=== PATIENT | female | born 1960 | race American Indian/Alaskan Native ===

== ENCOUNTER 2020-07-21 23:01 | Inpatient (IN) | payer OTHER ==
[2020-07-21] MEDS ORDERED: LORazepam 2 MG/ML VIAL IV PRN ×2 (23:06)
[2020-07-21] MEDS ORDERED: diazePAM 10 MG/2 ML SYRINGE IV ONE ×3 (23:06→23:49)
--- NOTE | 2020-07-21 23:07 | Emergency Department Report ---
ED General Adult HPI - General Chief complaint: Weakness Stated complaint: ALCOHOL WITHDRWALS PUI?: No Time Seen by Provider: 07/21/20 23:05 Source: patient, EMS (Verbal report received from emergency medical services. EM S documentation not available at time of chart dictation ), RN notes reviewed Mode of arrival: Stretcher Limitations: Physical Limitation - History of Present Illness Initial comments: The patient was evaluated in the emergency department for symptoms described in the history of present illness. He/she was evaluated in the context of the global COVID-19 pandemic, which necessitated consideration that the patient might be at risk for infection with the virus that causes COVID-19. Institutional protocols and algorithms that pertain to the evaluation of patients at risk for COVID-19 are in a state of rapid change based on information released by regulatory bodies including the CDC and federal and stat e organizations. These policies and algorithms were followed during the patient's care in the emergency department. Please note that these policies, procedures and recommendations changed on a rapid basis. The patient is a 59-year-old female. She is not known to myself previously. She has a history of alcohol dependence, hypertension, and COPD. She presents to the ER today with EMS with a complaint of alcohol withdrawal. She typically drinks a liter of alcohol daily. Her last alcoholic beverage was over 24 hours ago. She presents with a complaint of malaise, shakiness, tremors, fatigue. She is not having physical pain. She endorses a dry cough. She is not homicidal suicidal. -: Gradual, hour(s) Consistency: constant Improves with: none Worsens with: none - Related Data Allergies Allergy/AdvReac Type Severity Reaction Status Date / Time Penicillins Allergy Unknown Verified 07/21/20 23:06 tomato sauce Allergy Unknown Uncoded 07/21/20 23:13 ED Review of Systems ROS: Stated complaint: ALCOHOL WITHDRWALS Other details as noted in HPI Constitutional: malaise, weakness, other (Denies loss of taste and smell) Eyes: denies: eye discharge Respiratory: denies: cough Cardiovascular: palpitations. denies: chest pain Gastrointestinal: denies: abdominal pain, nausea, vomiting Genitourinary: denies: dysuria Neurological: weakness Psychiatric: denies: auditory hallucinations, visual hallucinations, homicidal thoughts, suicidal thoughts ED Physical Exam - General Limitations: Physical Limitation General appearance: alert, anxious, in distress - Head Head exam: Present: atraumatic, normocephalic - Eye Eye exam: Present: normal appearance, EOMI. Absent: nystagmus - ENT ENT exam: Present: mucous membranes dry, normal external ear exam, other (Dry mucous membranes. Tongue fasciculations noted) - Neck Neck exam: Present: normal inspection, full ROM. Absent: tenderness, meningismus - Respiratory Respiratory exam: Present: normal lung sounds bilaterally. Absent: respiratory distress, wheezes, rales, rhonchi, stridor, decreased breath sounds - Cardiovascular Cardiovascular Exam: Present: normal rhythm, tachycardia, normal heart sounds. Absent: systolic murmur, diastolic murmur, rubs, gallop - GI/Abdominal GI/Abdominal exam: Present: soft. Absent: distended, tenderness, guarding, rebound, rigid, pulsatile mass - Extremities Exam Extremities exam: Present: normal inspection, full ROM, other (2+ pulses noted in the bilateral upper and lower extremities. There is no palpable cord. negative Homans sign. Muscular compartments are soft. The pelvis is stable.). Absent: pedal edema, calf tenderness - Back Exam Back exam: Present: normal inspection, full ROM. Absent: tenderness, CVA tenderness (R), CVA tenderness (L), paraspinal tenderness, vertebral tenderness - Neurological Exam Neurological exam: Present: alert, other (No facial droop. Tongue midline. Extraocular movements intact bilaterally. Facial sensation intact to light touch in V1, V2, V3 distribution bilaterally. 5 and a 5 strength in 4 extremities. Sensation intact to light touch in 4 extremities.) - Psychiatric Psychiatric exam: Present: anxious - Skin Skin exam: Present: warm, dry, intact, normal color. Absent: rash ED Course Vital Signs 07/21/20 07/22/20 23:24 00:00 Temperature 98.3 F Pulse Rate 134 H 115 H Respiratory 20 27 H Rate Blood Pressure 122/74 O2 Sat by Pulse 98 96 Oximetry ED Medical Decision Making - Lab Data Result diagrams: 07/21/20 23:15 07/21/20 23:15 Vital Signs 07/21/20 23:24 Temperature 98.3 F Pulse Rate 134 H Respiratory 20 Rate O2 Sat by Pulse 98 Oximetry Lab Results 07/21/20 07/21/20 07/21/20 Range/Units 23:15 23:15 23:15 WBC 6.7 (4.5-11.0) K/mm3 RBC 3.46 L (3.65-5.03) M/mm3 Hgb 11.2 (10.1-14.3) gm/dl Hct 33.4 (30.3-42.9) % MCV 97 (79-97) fl MCH 32 (28-32) pg MCHC 34 (30-34) % RDW 14.8 (13.2-15.2) % Plt Count 69 L (140-440) K/mm3 Sodium 140 (137-145) mmol/L Potassium 2.9 L* (3.6-5.0) mmol/L Chloride 96.8 L (98-107) mmol/L Carbon Dioxide 25 (22-30) mmol/L Anion Gap 21 mmol/L BUN 11 (7-17) mg/dL Creatinine 0.5 L (0.6-1.2) mg/dL Estimated GFR > 60 ml/min BUN/Creatinine Ratio 22 % Glucose 402 H (65-100) mg/dL POC Glucose (70-105) mg/dL Calcium 8.0 L (8.4-10.2) mg/dL Magnesium 1.50 L (1.7-2.3) mg/dL Total Bilirubin 1.10 (0.1-1.2) mg/dL AST 194 H (5-40) units/L ALT 32 (7-56) units/L Alkaline Phosphatase 199 H (35-129) units/L Total Protein 6.4 (6.3-8.2) g/dL Albumin 3.5 L (3.9-5) g/dL Albumin/Globulin Ratio 1.2 % Salicylates < 0.3 L (2.8-20.0) mg/dL Acetaminophen (10.0-30.0) ug/mL Plasma/Serum Alcohol (0-0.07) % 07/21/20 07/21/20 07/21/20 Range/Units 23:15 23:15 23:36 WBC (4.5-11.0) K/mm3 RBC (3.65-5.03) M/mm3 Hgb (10.1-14.3) gm/dl Hct (30.3-42.9) % MCV (79-97) fl MCH (28-32) pg MCHC (30-34) % RDW (13.2-15.2) % Plt Count (140-440) K/mm3 Sodium (137-145) mmol/L Potassium (3.6-5.0) mmol/L Chloride (98-107) mmol/L Carbon Dioxide (22-30) mmol/L Anion Gap mmol/L BUN (7-17) mg/dL Creatinine (0.6-1.2) mg/dL Estimated GFR ml/min BUN/Creatinine Ratio % Glucose (65-100) mg/dL POC Glucose 335 H (70-105) mg/dL Calcium (8.4-10.2) mg/dL Magnesium (1.7-2.3) mg/dL Total Bilirubin (0.1-1.2) mg/dL AST (5-40) units/L ALT (7-56) units/L Alkaline Phosphatase (35-129) units/L Total Protein (6.3-8.2) g/dL Albumin (3.9-5) g/dL Albumin/Globulin Ratio % Salicylates (2.8-20.0) mg/dL Acetaminophen 5.0 L (10.0-30.0) ug/mL Plasma/Serum Alcohol < 0.01 (0-0.07) % - EKG Data -: EKG Interpreted by [facility] EKG shows normal: sinus rhythm Rate: tachycardia - EKG Data 07/22/20 00:18 Sinus rhythm, tachycardia, 117 bpm. Normal axis, QTC 527 ms, left ventricular hypertrophy, incomplete right bundle branch block, atrial enlargement. Abnormal EKG. Not a STEMI. No prior for comparison. - Radiology Data Radiology results: pending, report reviewed, image reviewed X-ray of the chest is negative for acute disease - Medical Decision Making Differential diagnosis, including but not limited to: Alcohol withdrawal, metabolic acidosis, electrolyte derangement Assessment and plan: 59-year-old female with tongue fasciculations, tachycardia, generalized tremors, highly suspicious for alcohol withdrawal, initial CIWA score is 20. Patient received Valium 5 mg x 2. She does not meet criteria for 1013. Anemia and thrombocytopenia are likely secondary to alcoholism. She is found to have multiple electrolyte abnormalities, including hypokalemia, hypomagnesemia, and hypocalcemia. We will replete and address all of these. We will continue patient on CIWA protocol. With hyperglycemia, and hypokalemia, not a candidate for insulin therapy yet, as potassium is quite low. She will require admission to the medical service for medical optimization for her multiple abnormalities. I discussed this plan of care with the patient, who is amenable to this plan of care. Hospital physician, Dr. Charly Arnett, To admit patient to the medical service. Critical Care Time: Yes Critical care time in (mins) excluding proc time.: 35 Critical care attestation.: If time is entered above; I have spent that time in minutes in the direct care of this critically ill patient, excluding procedure time. ED Disposition Clinical Impression: Alcohol withdrawal, Hyperglycemia, Hypomagnesemia, Hypokalemia, Hypocalcemia, Metabolic acidosis, Thrombocytopenia Disposition: DC-09 OP ADMIT IP TO THIS HOSP Is pt being admited?: Yes Does the pt Need Aspirin: No Condition: Serious Referrals: PRIMARY CARE, [Primary Care Provider] - 3-5 Days
[2020-07-21] MEDS ORDERED: D5W/0.45% NACL 1,000 ML IV SCH (23:45)
[2020-07-22 00:05] LABS: Alanine Aminotransferase 32 units/L (7-56); Albumin 3.5 g/dL (3.9-5); Blood Urea Nitrogen 11 mg/dL (7-17); Hemolysis Index 2
--- NOTE | 2020-07-22 00:05 | XRay Report ---
CHEST 1 VIEW 07/21/2020 11:33 PM INDICATION / CLINICAL INFORMATION: cough. EtOH withdrawal. COMPARISON: None available. FINDINGS: SUPPORT DEVICES: None. HEART / MEDIASTINUM: No significant abnormality. LUNGS / PLEURA: No significant pulmonary or pleural abnormality. No pneumothorax. ADDITIONAL FINDINGS: No significant additional findings. IMPRESSION: 1. No acute findings. Signer Name: Roly Canchola MD Signed: 07/22/2020 12:01 AM Workstation Name: [id number]
[2020-07-22 00:07] LABS: BUN/Creatinine Ratio 22
[2020-07-22 00:08] LABS: Hematocrit 33.4 % (30.3-42.9); Hemoglobin 11.2 gm/dl (10.1-14.3); Mean Corpuscular HGB Conc 34 % (30-34); Mean Corpuscular Volume 97 fl (79-97); Red Blood Count 3.46 M/mm3 (3.65-5.03); Red Cell Distribution Width 14.8 % (13.2-15.2)
[2020-07-22 00:09] LABS: Platelet Count 69 K/mm3 (140-440)
[2020-07-22] MEDS ORDERED: MAGNESIUM SULFATE 2 GM/50 ML BAG IV ONE (00:11)
[2020-07-22] MEDS ORDERED: CALCIUM GLUCONATE 2,000 MG in SODIUM CHLORIDE 0.9% 100 ML IV ONE (00:11)
[2020-07-22] MEDS ORDERED: POTASSIUM CHLORIDE ER 20 MEQ TAB PO ONE (00:11)
[2020-07-22 00:16] LABS: INR 0.99 (0.87-1.13)
[2020-07-22] MEDS ORDERED: FOLIC ACID IV ONE (00:16)
[2020-07-22] MEDS ORDERED: MULTIPLE VITAMIN IV ONE (00:16)
[2020-07-22] MEDS ORDERED: THIAMINE IV ONE (00:16)
[2020-07-22] MEDS ORDERED: [UNRECOGNIZED DRUG - OTHER] IV ONE (00:16)
[2020-07-22] MEDS ORDERED: ONDANSETRON 4 MG/2 ML INJ IV PRN (00:56)
[2020-07-22] MEDS ORDERED: MAGNESIUM HYDROXIDE (MOM) ORAL LIQD UDC PO PRN (00:56)
[2020-07-22] MEDS ORDERED: ACETAMINOPHEN 325 MG TAB PO PRN (00:56)
[2020-07-22] MEDS ORDERED: SODIUM CHLORIDE 0.9% 1000 ML 1,000 ML IV SCH (01:00)
--- NOTE | 2020-07-22 01:07 | History and Physical Report ---
History of Present Illness Date of examination: 07/22/20 Date of admission: 07/22/20 00:22 Chief complaint: Alcohol withdrawal History of present illness: 59-year-old female with known history of hypertension, COPD and alcohol dependence brought into the emergency room today by EMS with complaints of alcohol withdrawal. Patient drinks about a liter of alcohol on a daily basis and the last alcohol intake was about 24 hours ago. She has been having some nausea and vomiting but denies any diarrhea. She denies any abdominal pain, no fever or chills, no chest pain or shortness of breath, no headache or dizziness. She has had some cough which is nonproductive. She denies any hallucinations. Upon arrival in the emergency room work-up reveals hypomagnesemia, hyperglycemia, hypokalemia and hypocalcemia. Patient was commenced on IV fluid and also placed on the CIWA protocol for the alcohol withdrawal. Electrolyte replacement was also being initiated. Past History Past Medical History: COPD, hypertension, other Past Surgical History: No surgical history Social history: alcohol abuse Family history: no significant family history Medications and Allergies Allergies Allergy/AdvReac Type Severity Reaction Status Date / Time Penicillins Allergy Unknown Verified 07/21/20 23:06 tomato sauce Allergy Unknown Uncoded 07/21/20 23:13 Active Meds: Active Medications Dextrose/Sodium Chloride (D5/0.45ns) 1,000 mls @ 0 mls/hr IV DIRECT ISIDORO Last Admin: 07/21/20 23:39 Dose: 999 mls/hr Documented by: Potassium Chloride (Kcl 10meq/100ml) 10 meq in 100 mls @ 100 mls/hr IV Q1H ISIDORO Stop: 07/22/20 04:59 Thiamine HCl 100 mg/ Folic Acid 1 mg/ Multivitamins/Minerals 10 ml/ Calcium Gluconate 2,000 mg/ Sodium Chloride 1,031.2 mls @ 250 mls/hr IV ONCE ONE Stop: 07/22/20 04:23 Lorazepam (Lorazepam 2 Mg/Ml Vial) 2 mg IV Q1HR PRN PRN Reason: CIWA-Ar 8-15 Lorazepam (Lorazepam 2 Mg/Ml Vial) 4 mg IV Q1HR PRN PRN Reason: CIWA-Ar 16-25 Lorazepam (Lorazepam 2 Mg/Ml Vial) 4 mg IV Q15MIN PRN PRN Reason: CIWA-Ar >25 Magnesium Oxide (Magnesium Oxide 400 Mg Tab) 400 mg PO QDAY ISIDORO Review of Systems Constitutional: no fever, no chills, no weakness Ears, nose, mouth and throat: no nasal congestion, no sore throat Cardiovascular: no chest pain, no palpitations Respiratory: no cough, no shortness of breath Gastrointestinal: nausea, vomiting, no abdominal pain, no diarrhea, no hematemesis, no coffee ground emesis Genitourinary Female: no flank pain, no dysuria, no hematuria Musculoskeletal: no neck pain, no low back pain Integumentary: no rash, no pruritis Neurological: no headaches, no confusion Psychiatric: anxiety, depression Exam - Constitutional Vitals: Temp Pulse Resp BP Pulse Ox 98.3 F 115 H 27 H 122/74 96 07/21/20 23:24 07/22/20 00:00 07/22/20 00:00 07/22/20 00:00 07/22/20 00:00 General appearance: Present: no acute distress, well-nourished - EENT Eyes: Present: PERRL, EOM intact. Absent: scleral icterus ENT: hearing intact, clear oral mucosa, dentition normal - Neck Neck: Present: supple, normal ROM - Respiratory Respiratory effort: normal Respiratory: bilateral: CTA - Cardiovascular Rhythm: regular Heart Sounds: Present: S1 & S2. Absent: gallop, systolic murmur, diastolic murmur, rub - Extremities Extremities: no ischemia, pulses intact, pulses symmetrical, No edema, normal temperature, normal color, Full ROM Peripheral Pulses: within normal limits - Abdominal General gastrointestinal: Present: soft, non-tender, non-distended, normal bowel sounds. Absent: mass - Integumentary Integumentary: Present: clear, warm, dry. Absent: rash - Musculoskeletal Musculoskeletal: strength equal bilaterally - Psychiatric Psychiatric: appropriate mood/affect, intact judgment & insight, memory intact, cooperative - Neurologic Neurologic: CNII-XII intact, no focal deficits, moves all extremities, other (Appears anxious, tremulous in the fingers.) Results - Labs CBC & Chem 7: 07/21/20 23:15 07/21/20 23:15 Labs: Abnormal lab results 07/21/20 07/21/20 07/21/20 Range/Units 23:15 23:15 23:15 RBC 3.46 L (3.65-5.03) M/mm3 Plt Count 69 L (140-440) K/mm3 VBG pH (7.320-7.420) Potassium 2.9 L* (3.6-5.0) mmol/L Chloride 96.8 L (98-107) mmol/L Creatinine 0.5 L (0.6-1.2) mg/dL Glucose 402 H (65-100) mg/dL POC Glucose (70-105) mg/dL Lactic Acid (0.7-2.0) mmol/L Calcium 8.0 L (8.4-10.2) mg/dL Magnesium 1.50 L (1.7-2.3) mg/dL AST 194 H (5-40) units/L Alkaline Phosphatase 199 H (35-129) units/L Albumin 3.5 L (3.9-5) g/dL Salicylates < 0.3 L (2.8-20.0) mg/dL Acetaminophen (10.0-30.0) ug/mL 07/21/20 07/21/20 07/22/20 Range/Units 23:15 23:36 00:29 RBC (3.65-5.03) M/mm3 Plt Count (140-440) K/mm3 VBG pH 7.441 H (7.320-7.420) Potassium (3.6-5.0) mmol/L Chloride (98-107) mmol/L Creatinine (0.6-1.2) mg/dL Glucose (65-100) mg/dL POC Glucose 335 H (70-105) mg/dL Lactic Acid (0.7-2.0) mmol/L Calcium (8.4-10.2) mg/dL Magnesium (1.7-2.3) mg/dL AST (5-40) units/L Alkaline Phosphatase (35-129) units/L Albumin (3.9-5) g/dL Salicylates (2.8-20.0) mg/dL Acetaminophen 5.0 L (10.0-30.0) ug/mL 07/22/20 Range/Units 00:29 RBC (3.65-5.03) M/mm3 Plt Count (140-440) K/mm3 VBG pH (7.320-7.420) Potassium (3.6-5.0) mmol/L Chloride (98-107) mmol/L Creatinine (0.6-1.2) mg/dL Glucose (65-100) mg/dL POC Glucose (70-105) mg/dL Lactic Acid 4.30 H* (0.7-2.0) mmol/L Calcium (8.4-10.2) mg/dL Magnesium (1.7-2.3) mg/dL AST (5-40) units/L Alkaline Phosphatase (35-129) units/L Albumin (3.9-5) g/dL Salicylates (2.8-20.0) mg/dL Acetaminophen (10.0-30.0) ug/mL Assessment and Plan - Patient Problems (1) Alcohol withdrawal Current Visit: Yes Status: Acute Plan to address problem: Patient admitted and placed on alcohol withdrawal protocol. She has also been commenced on multivitamins via banana bag. (2) Hyperglycemia Current Visit: Yes Status: Acute Plan to address problem: We will monitor Accu-Cheks closely. Patient has no known history of diabetes mellitus. (3) Hypocalcemia Current Visit: Yes Status: Acute Plan to address problem: We will replete calcium and monitor chemistry. (4) Hypokalemia Current Visit: Yes Status: Acute Plan to address problem: We will replete potassium and monitor chemistry. (5) Hypomagnesemia Current Visit: Yes Status: Acute Plan to address problem: We will replete magnesium and monitor chemistry (6) DVT prophylaxis Current Visit: Yes Status: Acute Plan to address problem: Patient placed on subcutaneous on Lovenox. (7) Full code status Current Visit: Yes Status: Acute Plan to address problem: Patient is full code.
[2020-07-22] MEDS ORDERED: DEXTROSE 50% IN WATER (25GM) 50 ML SYRINGE IV PRN (01:10)
[2020-07-22] MEDS: POTASSIUM CHLORIDE 10 MEQ 10 MEQ/100 ML BAG IV SCH ×4 (01:19→04:30)
[2020-07-22] MEDS: LORazepam 2 MG/ML VIAL IV PRN ×3 (03:28→15:19)
[2020-07-22] MEDS: INSULIN LISPRO 100 UNIT/ML SUB-Q SCH ×4 (08:27→21:38)
--- NOTE | 2020-07-22 10:07 | Event Note ---
Date: 07/22/20 Patient seen and examined Monitor for alcohol withdrawal, continue CIWA protocol will also r/o COVID Replete electrolytes, follow BMP
[2020-07-22] MEDS: MAGNESIUM OXIDE 400 MG TAB PO SCH (10:13)
[2020-07-22 14:38] LABS: Blood Urea Nitrogen 4 mg/dL (7-17); Calcium 8.4 mg/dL (8.4-10.2); Hemolysis Index 0
[2020-07-22 14:41] LABS: BUN/Creatinine Ratio 13
[2020-07-22] MEDS: AZITHROMYCIN 250 MG TAB PO SCH (19:06)
[2020-07-22] MEDS: POTASSIUM CHLORIDE ER 20 MEQ TAB PO SCH (19:06)
[2020-07-23] MEDS: LORazepam 2 MG/ML VIAL IV PRN (03:05)
[2020-07-23] MEDS: SODIUM CHLORIDE 0.9% 1000 ML 1,000 ML IV SCH ×2 (05:43→12:59)
[2020-07-23 06:44] LABS: Blood Urea Nitrogen 3 mg/dL (7-17); Calcium 8.4 mg/dL (8.4-10.2); Hemolysis Index 2
[2020-07-23 06:46] LABS: Basophils % (Auto) 0.7 % (0.0-1.8); Eosinophils # (Auto) 0.1 K/mm3 (0.0-0.4); Hematocrit 35.1 % (30.3-42.9); Hemoglobin 11.8 gm/dl (10.1-14.3); Lymphocytes # (Auto) 1.4 K/mm3 (1.2-5.4); Lymphocytes % (Auto) 23.3 % (13.4-35.0); Mean Corpuscular HGB Conc 34 % (30-34); Mean Corpuscular Volume 96 fl (79-97); Monocytes # (Auto) 0.3 K/mm3 (0.0-0.8); Monocytes % (Auto) 5.2 % (0.0-7.3); Platelet Count 68 K/mm3 (140-440); Red Blood Count 3.67 M/mm3 (3.65-5.03); Red Cell Distribution Width 14.2 % (13.2-15.2)
[2020-07-23 06:47] LABS: BUN/Creatinine Ratio 15
[2020-07-23 07:00] LABS: INR 1.04 (0.87-1.13)
[2020-07-23] MEDS: INSULIN LISPRO 100 UNIT/ML SUB-Q SCH ×4 (08:45→22:43)
[2020-07-23] MEDS: MAGNESIUM OXIDE 400 MG TAB PO SCH (09:57)
[2020-07-23] MEDS: AZITHROMYCIN 250 MG TAB PO SCH (09:57)
[2020-07-23] MEDS: POTASSIUM CHLORIDE ER 20 MEQ TAB PO SCH (09:58)
[2020-07-23] MEDS ORDERED: POTASSIUM CHLORIDE ER 20 MEQ TAB PO NR (12:00)
--- NOTE | 2020-07-23 12:50 | Progress Note ---
Assessment and Plan 59-year-old female with known history of hypertension, COPD and alcohol dependence brought into the emergency room by EMS with complaints of alcohol withdrawal, some nausea and vomiting. Upon arrival in the emergency room work- up reveals hypomagnesemia, hyperglycemia, hypokalemia and hypocalcemia. Patient was commenced on IV fluid and also placed on the CIWA protocol for the alcohol withdrawal. -- Acute pancreatitis, POA Patient has elevated lipase level, also presented with nausea vomiting Continue IV fluid hydration, advance diet as tolerated Recommended abstinence from the alcohol -- Alcohol withdrawal Patient admitted and placed on alcohol withdrawal protocol. She has also been commenced on multivitamins via banana bag. -- Hyperglycemia We will monitor Accu-Cheks closely. Patient has no known history of diabetes mellitus. --Hypocalcemia We will replete calcium and monitor chemistry. -- Hypokalemia We will replete potassium and monitor chemistry. --Hypomagnesemia We will replete magnesium and monitor chemistry --Malnutrition, moderate Nutrition consult --COPD, stable Nebulizer as needed -- DVT prophylaxis Patient placed on subcutaneous on Lovenox. -- Full code status Daily course: 07/23/20: wait for covid test, replete electrolytes, follow BMP. order PT eval. call patient daughter and updated with all clinical details. Subjective Date of service: 07/23/20 Interval history: Patient seen and examined. Medical records and medication list reviewed. No acute event overnight noted by the RN. Patient denies any chest pain or difficulty breathing. Patient is tolerating clear liquid diet -we will advance as tolerated. Denies any abdominal pain, Covid test pending Discussed plan of care at bedside with patient. Objective - Exam Narrative Exam: Limited physical exam due to COVID-19 pandemic to minimize transmission of the disease and to preserve PPE. Vital reviewed and stable. GENERAL: -[place] female who appears older than her stated age lying on bed appeared to be in no discomfort. HEENT: Normocephalic. Atraumatic. NECK: Supple. CHEST/LUNGS: breathing nonlabored. HEART/CARDIOVASCULAR: Heart rate stable on telemetry ABDOMEN: Visibly not distended SKIN: There is no rash NEURO: No focal motor deficit. Follows command. MUSCULOSKELETAL: No joint effusion EXTRIMITY: No swelling, no cyanosis or clubbing. PSYCH: Cooperative. - Constitutional Vitals: Vital Signs - 12hr 07/23/20 07/23/20 07/23/20 02:00 05:01 10:31 Temperature 98.2 F Pulse Rate 117 H 107 H Respiratory 20 Rate Blood Pressure 120/77 O2 Sat by Pulse 98 98 Oximetry 07/23/20 11:02 Temperature 99.1 F Pulse Rate 107 H Respiratory 18 Rate Blood Pressure 101/67 O2 Sat by Pulse 100 Oximetry - Labs CBC & Chem 7: 07/23/20 04:50 07/24/20 05:36 Labs: Abnormal lab results 07/22/20 07/22/20 07/23/20 Range/Units 13:51 20:26 04:50 Plt Count 68 L (140-440) K/mm3 Potassium 3.2 L (3.6-5.0) mmol/L Carbon Dioxide 32 H D (22-30) mmol/L BUN 4 L (7-17) mg/dL Creatinine 0.3 L (0.6-1.2) mg/dL Glucose 118 H (65-100) mg/dL POC Glucose 114 H (70-105) mg/dL Magnesium 1.60 L (1.7-2.3) mg/dL 07/23/20 07/23/20 Range/Units 04:50 07:49 Plt Count (140-440) K/mm3 Potassium 3.2 L (3.6-5.0) mmol/L Carbon Dioxide (22-30) mmol/L BUN 3 L (7-17) mg/dL Creatinine 0.2 L (0.6-1.2) mg/dL Glucose (65-100) mg/dL POC Glucose 66 L (70-105) mg/dL Magnesium (1.7-2.3) mg/dL
[2020-07-23] MEDS ORDERED: MAGNESIUM SULFATE 2 GM/50 ML BAG IV ONE (13:00)
[2020-07-23] MEDS: metroNIDAZOLE 500 MG TAB PO SCH ×2 (16:36→22:44)
[2020-07-23] MEDS: D5W/0.9% NACL 1,000 ML IV SCH (16:43)
[2020-07-24] MEDS: D5W/0.9% NACL 1,000 ML IV SCH (05:48)
[2020-07-24] MEDS: metroNIDAZOLE 500 MG TAB PO SCH ×2 (05:48→14:11)
[2020-07-24 06:56] LABS: Blood Urea Nitrogen 4 mg/dL (7-17); Calcium 8.5 mg/dL (8.4-10.2); Hemolysis Index 0
[2020-07-24 06:58] LABS: BUN/Creatinine Ratio 13
[2020-07-24 08:28] VITALS: BP 97/66
[2020-07-24] MEDS: INSULIN LISPRO 100 UNIT/ML SUB-Q SCH ×2 (08:33→12:52)
[2020-07-24] MEDS: MAGNESIUM OXIDE 400 MG TAB PO SCH (09:04)
[2020-07-24] MEDS: AZITHROMYCIN 250 MG TAB PO SCH (09:04)
[2020-07-24] MEDS: POTASSIUM CHLORIDE ER 20 MEQ TAB PO SCH (09:04)
[2020-07-24] MEDS: LORazepam 2 MG/ML VIAL IV PRN (09:08)
--- NOTE | 2020-07-24 15:31 | Progress Note ---
Assessment and Plan 59-year-old female with known history of hypertension, COPD and alcohol dependence brought into the emergency room by EMS with complaints of alcohol withdrawal, some nausea and vomiting. Upon arrival in the emergency room work- up reveals hypomagnesemia, hyperglycemia, hypokalemia and hypocalcemia. Patient was commenced on IV fluid and also placed on the CIWA protocol for the alcohol withdrawal. -- Acute pancreatitis, POA Patient has elevated lipase level, also presented with nausea vomiting Continue IV fluid hydration, advance diet as tolerated Recommended abstinence from the alcohol -- Alcohol withdrawal Patient admitted and placed on alcohol withdrawal protocol. She has also been commenced on multivitamins via banana bag. -- Hyperglycemia We will monitor Accu-Cheks closely. Patient has no known history of diabetes mellitus. --Hypocalcemia We will replete calcium and monitor chemistry. -- Hypokalemia repleted potassium and monitor chemistry. --Hypomagnesemia repleted magnesium and monitor chemistry --Acute diarrhea, ordered for stool study, continue Flagyl for now --Malnutrition, moderate Nutrition consult --COPD, stable Nebulizer as needed -- DVT prophylaxis Patient placed on subcutaneous on Lovenox. -- Full code status Daily course: 07/23/20: wait for covid test, replete electrolytes, follow BMP. order PT eval. call patient daughter and updated with all clinical details. RN reports some diarrhea -ordered for stool study, start empirically on Flagyl 07/24/20: Covid test was negative yesterday. Stool study pending. Potassium and magnesium level improved. Advance diet. Wait for PT eval. if clinically stable and tolerates diet possible DC tomorrow. Order for repeat lipase level tomorrow Subjective Date of service: 07/24/20 Objective - Constitutional Vitals: Vital Signs - 12hr 07/24/20 08:07 Temperature 98.9 F Pulse Rate 86 Respiratory 16 Rate Blood Pressure 97/66 O2 Sat by Pulse 100 Oximetry - Labs CBC & Chem 7: 07/23/20 04:50 07/24/20 05:36 Labs: Abnormal lab results 07/23/20 07/23/20 07/24/20 Range/Units 11:01 16:11 05:36 Sodium 136 L (137-145) mmol/L BUN 4 L (7-17) mg/dL Creatinine 0.3 L (0.6-1.2) mg/dL POC Glucose 144 H (70-105) mg/dL Lipase 776 H (13-60) units/L
--- NOTE | 2020-07-24 17:06 | Discharge Summary ---
Providers - Providers Date of Admission: 07/22/20 10:09 Date of discharge: 07/24/20 Attending physician: EDI OWENS 07/22/20 00:58 Consult to Dietitian/Nutrition [CONS] Routine Physician Instructions: Reason For Exam: Reason for Consult: Diet education 07/22/20 01:10 Consult to Dietitian/Nutrition [CONS] Routine Physician Instructions: Reason For Exam: Reason for Consult: Diet education 07/23/20 15:59 Physical Therapy Evaluation and Treat [CONS] Routine Comment: Reason For Exam: Debility 07/24/20 13:21 Physical Therapy Evaluation and Treat [CONS] Urgent Comment: Reason For Exam: home vs skill Primary care physician: VENDING 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 Upon arrival in the emergency room work- up reveals hypomagnesemia, hyperglycemia, hypokalemia and hypocalcemia. Patient was commenced on IV fluid and also placed on the CIWA protocol for the alcohol withdrawal. Daily course: 07/23/20: wait for covid test, replete electrolytes, follow BMP. order PT eval. call patient daughter and updated with all clinical details. RN reports some diarrhea -ordered for stool study, start empirically on Flagyl 07/24/20: Covid test was negative yesterday. Potassium and magnesium level improved. Advance diet. PT recommended roller walker. Patient will be discharged home with outpatient follow-up. Discharge diagnosis; -- Acute pancreatitis, POA Patient has elevated lipase level, also presented with nausea vomiting Continue IV fluid hydration, advance diet as tolerated Recommended abstinence from the alcohol -- Alcohol withdrawal Patient admitted and placed on alcohol withdrawal protocol. She has also been commenced on multivitamins via banana bag. -- Hyperglycemia We will monitor Accu-Cheks closely. Patient has no known history of diabetes mellitus. --Hypocalcemia We will replete calcium and monitor chemistry. -- Hypokalemia repleted potassium and monitor chemistry. --Hypomagnesemia repleted magnesium and monitor chemistry --Acute diarrhea, ordered for stool study, continue Flagyl for now --Malnutrition, moderate Nutrition consult --COPD, stable Nebulizer as needed -- DVT prophylaxis Patient placed on subcutaneous on Lovenox. -- Full code status Disposition: DC-01 TO HOME OR SELFCARE Time spent for discharge: 34 minutes Core Measure Documentation - Palliative Care Palliative Care/ Comfort Measures: Not Applicable - Core Measures Any of the following diagnoses?: none Exam - Physical Exam Narrative exam: Limited physical exam due to COVID-19 pandemic to minimize transmission of the disease and to preserve PPE. Vital reviewed and stable. GENERAL: -[place] female who appears older than her stated age lying on bed appeared to be in no discomfort. HEENT: Normocephalic. Atraumatic. NECK: Supple. CHEST/LUNGS: breathing nonlabored. HEART/CARDIOVASCULAR: Heart rate stable on telemetry ABDOMEN: Visibly not distended SKIN: There is no rash NEURO: No focal motor deficit. Follows command. MUSCULOSKELETAL: No joint effusion EXTRIMITY: No swelling, no cyanosis or clubbing. PSYCH: Cooperative. - Constitutional Vitals: Temp Pulse Resp BP Pulse Ox 98.9 F 86 16 97/66 100 07/24/20 08:07 07/24/20 10:00 07/24/20 08:07 07/24/20 08:07 07/24/20 08:07 Plan Activity: fall precautions Weight Bearing Status: Non-Weight Bearing Diet: advance as tolerated Special Instructions: other (Abstinence from alcohol) Follow up with: PRIMARY CARE, [Primary Care Provider] - 3-5 Days BELLA STEVENSON MD [Staff Physician] - 7 Days Prescriptions: metroNIDAZOLE [Flagyl TAB] 500 mg PO Q8HR #14 tablet Folic Acid 1 mg PO DAILY #30 tablet Thiamine [Vitamin B-1] 100 mg PO QDAY #30 tablet
== END 2020-07-24 18:08 | disposition home or self-care (01) | DRG 439 ==
LOC: ED 23:01 → 4A 07-22 00:22 → OBSVTOIN 07-22 10:09 → 3A 07-22 20:05 → 4A 07-23 21:10
PROVIDERS: ADMIT Internal Medicine Geriatric Medicine; ATTEND Internal Medicine
DX: K85.90 Acute pancreatitis without necrosis or infection, unspecified (principal); F10.239 Alcohol dependence with withdrawal, unspecified; E87.2 Acidosis; E44.0 Moderate protein-calorie malnutrition; R73.9 Hyperglycemia, unspecified; D69.6 Thrombocytopenia, unspecified; E87.6 Hypokalemia; E83.42 Hypomagnesemia; E83.51 Hypocalcemia; Z88.0 Allergy status to penicillin; Z91.018 Allergy to other foods; Z20.822 Contact with and (suspected) exposure to COVID-19; I10 Essential (primary) hypertension; J44.9 Chronic obstructive pulmonary disease, unspecified; Z68.23 Body mass index [BMI] 23.0-23.9, adult
CPT/HCPCS: 36415; 71045; 80048; 80053; 80320; 82140; 82805; 82962; 83690; 83735; 85025; 85027; 85610; 93005; 96361; 96365; 96367; 96375; 96376; 99406; G0378; G0480; J0610; J1815; J2060; J3360; J3411; J3475; J3480; J7030; J7042; U0003

== ENCOUNTER 2021-07-08 08:30 | Inpatient (IN) | payer SELFPAY ==
[2021-07-08] MEDS ORDERED: MORPHINE 4 MG/1 ML INJ IV ONE (09:20)
[2021-07-08] MEDS ORDERED: SODIUM CHLORIDE 0.9% 1000 ML 1,000 ML IV ONE ×2 (09:20→12:12)
[2021-07-08] MEDS ORDERED: ONDANSETRON 4 MG/2 ML INJ IV ONE (09:20)
--- NOTE | 2021-07-08 09:22 | Emergency Department Report ---
ED General Adult HPI - General Chief complaint: Abdominal Pain Stated complaint: Abdominal Pain PUI?: No Time Seen by Provider: 07/08/21 08:53 Source: patient, EMS ( EMS documentation not available at time of chart dictat ion ), RN notes reviewed, old records reviewed Mode of arrival: Stretcher Limitations: Physical Limitation - History of Present Illness Initial comments: The patient was evaluated in the emergency department for symptoms described in the history of present illness. He/she was evaluated in the context of the global COVID-19 pandemic, which necessitated consideration that the patient might be at risk for infection with the virus that causes COVID-19. Institutional protocols and algorithms that pertain to the evaluation of patients at risk for COVID-19 are in a state of rapid change based on information released by regulatory bodies including the CDC and federal and state organizations. These policies and algorithms were followed during the patient's care in the emergency department. Please note that these policies, procedures and recommendations changed on a rapid basis. The patient is a 60-year-old female. I have evaluated this patient in the past. The patient reports having had an outpatient colonoscopy yesterday at another facility, [facility]. She does not know the name of her it support analyst. She does not know the results of her colonoscopy She presents to the ER today with a complaint of diffuse abdominal pain, nausea and vomiting. Her abdominal pain is sharp and throbbing and diffuse. It increases with palpation. It is all over. It does not have alleviating factors. Denies additional injuries or complaints. -: Gradual, hour(s) Location: abdomen Severity scale (0 -10): 10 Consistency: constant Improves with: other Worsens with: other - Related Data Previous Rx's Medication Instructions Recorded Last Taken Type Folic Acid 1 mg PO DAILY #30 tablet 07/24/20 Unknown Rx Thiamine [Vitamin B-1] 100 mg PO QDAY #30 tablet 07/24/20 Unknown Rx metroNIDAZOLE [Flagyl TAB] 500 mg PO Q8HR #14 tablet 07/24/20 Unknown Rx Allergies Allergy/AdvReac Type Severity Reaction Status Date / Time Penicillins Allergy Unknown Verified 07/21/20 23:06 tomato sauce Allergy Unknown Uncoded 07/21/20 23:13 ED Review of Systems ROS: Stated complaint: Abdominal Pain Other details as noted in HPI Constitutional: malaise, weakness. denies: fever Eyes: denies: eye discharge ENT: denies: epistaxis Respiratory: denies: cough Cardiovascular: denies: chest pain Gastrointestinal: abdominal pain, nausea, vomiting Genitourinary: denies: dysuria Musculoskeletal: back pain Neurological: weakness Hematological/Lymphatic: denies: easy bleeding ED Past Medical Hx - Past Medical History Previous Medical History?: Yes Hx Hypertension: Yes Hx Congestive Heart Failure: No Hx Diabetes: (pt denies) Hx Asthma: Yes Hx COPD: Yes Additional medical history: Alcohol withdrawals, pancreatitis - Surgical History Additional Surgical History: knee, stomach - Social History Smoking Status: Current Every Day Smoker - Medications Home Medications: Home Medications Medication Instructions Recorded Confirmed Last Taken Type Folic Acid 1 mg PO DAILY #30 tablet 07/24/20 Unknown Rx Thiamine [Vitamin B-1] 100 mg PO QDAY #30 tablet 07/24/20 Unknown Rx metroNIDAZOLE [Flagyl TAB] 500 mg PO Q8HR #14 tablet 07/24/20 Unknown Rx ED Physical Exam - General Limitations: Physical Limitation General appearance: alert, anxious - Head Head exam: Present: atraumatic, normocephalic - Eye Eye exam: Present: normal appearance, EOMI. Absent: nystagmus - ENT ENT exam: Present: normal exam, normal orophraynx, mucous membranes moist, normal external ear exam - Neck Neck exam: Present: normal inspection, full ROM. Absent: tenderness, meningismus - Respiratory Respiratory exam: Present: normal lung sounds bilaterally. Absent: respiratory distress, wheezes, rales, rhonchi, stridor, decreased breath sounds - Cardiovascular Cardiovascular Exam: Present: regular rate, normal rhythm, normal heart sounds. Absent: bradycardia, tachycardia, irregular rhythm, systolic murmur, diastolic murmur, rubs, gallop - GI/Abdominal GI/Abdominal exam: Present: soft, tenderness, guarding, rebound. Absent: distended, rigid, pulsatile mass - Extremities Exam Extremities exam: Present: normal inspection, full ROM, other (2+ pulses noted in the bilateral upper and lower extremities. There is no palpable cord. negative Homans sign. Muscular compartments are soft. The pelvis is stable.). Absent: pedal edema, calf tenderness - Back Exam Back exam: Present: normal inspection, full ROM. Absent: tenderness, CVA tenderness (R), CVA tenderness (L), paraspinal tenderness, vertebral tenderness - Neurological Exam Neurological exam: Present: alert, oriented X3, other (No facial droop. Tongue midline. Extraocular movements intact bilaterally. Facial sensation intact to light touch in V1, V2, V3 distribution bilaterally. 5 and a 5 strength in 4 extremities. Sensation intact to light touch in 4 extremities.). Absent: motor sensory deficit - Psychiatric Psychiatric exam: Present: anxious - Skin Skin exam: Present: warm, dry, intact, normal color. Absent: rash ED Course Vital Signs 07/08/21 08:35 Temperature 98.3 F Pulse Rate 78 Respiratory 18 Rate Blood Pressure 106/60 [Left] O2 Sat by Pulse 100 Oximetry ED Medical Decision Making - Lab Data Result diagrams: 07/08/21 09:29 07/08/21 09:29 Vital Signs 07/08/21 08:35 Temperature 98.3 F Pulse Rate 78 Respiratory 18 Rate Blood Pressure 106/60 [Left] O2 Sat by Pulse 100 Oximetry Lab Results 07/08/21 07/08/21 07/08/21 Range/Units 09:29 09:29 09:29 WBC 8.5 (4.5-11.0) K/mm3 RBC 4.78 (3.65-5.03) M/mm3 Hgb 13.1 (10.1-14.3) gm/dl Hct 41.1 (30.3-42.9) % MCV 86 (79-97) fl MCH 27 L (28-32) pg MCHC 32 (30-34) % RDW 16.9 H (13.2-15.2) % Plt Count 144 (140-440) K/mm3 Lymph % (Auto) 9.1 L (13.4-35.0) % [place] % (Auto) 3.1 (0.0-7.3) % Eos % (Auto) 0.1 (0.0-4.3) % Baso % (Auto) 1.2 (0.0-1.8) % Lymph # (Auto) 0.8 L (1.2-5.4) K/mm3 [place] # (Auto) 0.3 (0.0-0.8) K/mm3 Eos # (Auto) 0.0 (0.0-0.4) K/mm3 Baso # (Auto) 0.1 (0.0-0.1) K/mm3 Seg Neutrophils % 86.5 H (40.0-70.0) % Seg Neutrophils # 7.4 (1.8-7.7) K/mm3 PT 13.7 (12.2-14.9) Sec. INR 0.95 (0.87-1.13) Sodium 142 (137-145) mmol/L Potassium 3.2 L (3.6-5.0) mmol/L Chloride 104.5 (98-107) mmol/L Carbon Dioxide 23 (22-30) mmol/L Anion Gap 18 mmol/L BUN 6 L (7-17) mg/dL Creatinine 0.6 (0.6-1.2) mg/dL Estimated GFR > 60 ml/min BUN/Creatinine Ratio 10 % Glucose 113 H (65-100) mg/dL Lactic Acid (0.7-2.0) mmol/L Calcium 9.0 (8.4-10.2) mg/dL Magnesium (1.7-2.3) mg/dL Total Bilirubin 0.30 (0.1-1.2) mg/dL Direct Bilirubin < 0.2 (0-0.2) mg/dL Indirect Bilirubin 0.1 mg/dL AST 16 (5-40) units/L ALT 12 (7-56) units/L Alkaline Phosphatase 78 (35-129) units/L Total Creatine Kinase (30-135) units/L Total Protein 7.3 (6.3-8.2) g/dL Albumin 4.0 (3.9-5) g/dL Albumin/Globulin Ratio 1.2 % Lipase 21 (13-60) units/L 07/08/21 07/08/21 Range/Units 09:29 09:29 WBC (4.5-11.0) K/mm3 RBC (3.65-5.03) M/mm3 Hgb (10.1-14.3) gm/dl Hct (30.3-42.9) % MCV (79-97) fl MCH (28-32) pg MCHC (30-34) % RDW (13.2-15.2) % Plt Count (140-440) K/mm3 Lymph % (Auto) (13.4-35.0) % [place] % (Auto) (0.0-7.3) % Eos % (Auto) (0.0-4.3) % Baso % (Auto) (0.0-1.8) % Lymph # (Auto) (1.2-5.4) K/mm3 [place] # (Auto) (0.0-0.8) K/mm3 Eos # (Auto) (0.0-0.4) K/mm3 Baso # (Auto) (0.0-0.1) K/mm3 Seg Neutrophils % (40.0-70.0) % Seg Neutrophils # (1.8-7.7) K/mm3 PT (12.2-14.9) Sec. INR (0.87-1.13) Sodium (137-145) mmol/L Potassium (3.6-5.0) mmol/L Chloride (98-107) mmol/L Carbon Dioxide (22-30) mmol/L Anion Gap mmol/L BUN (7-17) mg/dL Creatinine (0.6-1.2) mg/dL Estimated GFR ml/min BUN/Creatinine Ratio % Glucose (65-100) mg/dL Lactic Acid 1.90 (0.7-2.0) mmol/L Calcium (8.4-10.2) mg/dL Magnesium 1.50 L (1.7-2.3) mg/dL Total Bilirubin (0.1-1.2) mg/dL Direct Bilirubin (0-0.2) mg/dL Indirect Bilirubin mg/dL AST (5-40) units/L ALT (7-56) units/L Alkaline Phosphatase (35-129) units/L Total Creatine Kinase 71 (30-135) units/L Total Protein (6.3-8.2) g/dL Albumin (3.9-5) g/dL Albumin/Globulin Ratio % Lipase (13-60) units/L - EKG Data -: EKG Interpreted by [facility] EKG shows normal: sinus rhythm Rate: normal - EKG Data 07/08/21 12:18 The EKG is interpreted at 10: 25 Sinus rhythm, rate 89 bpm. Normal axis, normal P wave axis, left ventricular hypertrophy, atrial enlargement and motion artifact. Abnormal EKG. Not a STEMI. - Radiology Data Radiology results: report reviewed, image reviewed CT ABDOMEN AND PELVIS WITH CONTRAST HISTORY: acute abd pain s/p colonoscopy. COMPARISON: None. TECHNIQUE: Helical CT images of the abdomen and pelvis were obtained following administration of intravenous contrast. Sagittal and coronal reformatted images were reviewed. All CT scans at this location are performed using CT dose reduction for ALARA by means of automated exposure control. CONTRAST: Omnipaque 300 100 ml of intravenous contrast administered. FINDINGS: Abdomen/pelvis: There is mild to moderate free air in the abdomen. Visceral perforation is suspected until proven otherwise. With given history, colonic perforation is suspected although the site of perforation is not clearly evident. There is suggestion of narrowing in the rectosigmoid region in the pelvis. Mild circumferential bowel wall thickening with shouldering is identified in this area which is best demonstrated on image 66, series 4. Rectosigmoid mass/apple core lesion is difficult to exclude. The remainder of the GI system is grossly unremarkable given no oral contrast was administered. The liver, biliary system, pancreas, spleen, kidneys and adrenal glands are unremarkable. The vascular structures are patent. Mild atherosclerotic disease is noted in the abdominal aorta. No aneurysm. No adenopathy or fluid collection. There is small free fluid in the pelvis. The uterus, adnexa and bladder are unremarkable. Lungs/bones: No significant abnormality. IMPRESSION: Mild to moderate free air is identified in the abdomen concerning for visceral perforation. See above. Although this exam is slightly limited without oral contrast, there is suggestion of a mass in the rectosigmoid region. Please see above. CRITICAL RESULT: Time of Discovery (WINDOWS ADMINISTRATOR/CDT): 1105 hours Time of Communication (WINDOWS ADMINISTRATOR/CDT): 1107 hours Licensed Practitioner Receiving Report: Dr. Lema Read-Back Performed: Yes. Signer Name: Jeevan Rodriguez Jr, MD Signed: 07/08/2021 11:21 AM Workstation Name: [id number] - Medical Decision Making Differential diagnosis, including but not limited to: Colitis, diverticulitis, obstruction, perforation, electrolyte derangement Assessment and plan: 60-year-old female, with diffuse abdominal pain and tenderness, voluntary guarding, status post colonoscopy yesterday. CT scan abdomen pelvis demonstrates pneumoperitoneum, and possible rectosigmoid mass. She is also found to be hypokalemic and hypomagnesemic. Contacted general surgeon on-call, Dr. Lizama. Discussed the patient's history, physical, laboratory studies and imaging findings and overall clinical impression. Emergency general surgical consultation is requested for pneumoperitoneum. Dr. Baron in agreement with the plan of care, and will evaluate the patient shortly. Make this patient n.p.o., continue fluids antibiotics, and analgesia. Discussed findings with patient, and have recommended admission to the medical service. The patient is agreeable to this plan of care. Hospital physician, Dr. Kelvin Patel to admit to [facility] Critical care attestation.: If time is entered above; I have spent that time in minutes in the direct care of this critically ill patient, excluding procedure time. ED Disposition Clinical Impression: Hypokalemia, Hypomagnesemia, Peritonitis (acute) generalized, Pneumoperitoneum Disposition: ADMITTED INPATIENT Is pt being admited?: Yes Does the pt Need Aspirin: No Condition: Serious Instructions: Abdominal Pain (ED) Referrals: PRIMARY CARE, [Primary Care Provider] - 3-5 Days
[2021-07-08 10:03] LABS: Basophils # (Auto) 0.1 K/mm3 (0.0-0.1); Basophils % (Auto) 1.2 % (0.0-1.8); Eosinophils % (Auto) 0.1 % (0.0-4.3); Hematocrit 41.1 % (30.3-42.9); Hemoglobin 13.1 gm/dl (10.1-14.3); Lymphocytes # (Auto) 0.8 K/mm3 (1.2-5.4); Lymphocytes % (Auto) 9.1 % (13.4-35.0); Mean Corpuscular HGB Conc 32 % (30-34); Mean Corpuscular Volume 86 fl (79-97); Monocytes # (Auto) 0.3 K/mm3 (0.0-0.8); Monocytes % (Auto) 3.1 % (0.0-7.3); Platelet Count 144 K/mm3 (140-440); Red Blood Count 4.78 M/mm3 (3.65-5.03); Red Cell Distribution Width 16.9 % (13.2-15.2)
[2021-07-08 10:07] LABS: Alanine Aminotransferase 12 units/L (7-56); Blood Urea Nitrogen 6 mg/dL (7-17); Hemolysis Index 6
[2021-07-08 10:14] LABS: INR 0.95 (0.87-1.13)
[2021-07-08] MEDS ORDERED: POTASSIUM CHLORIDE ER 20 MEQ TAB PO ONE ×2 (10:16→11:16)
[2021-07-08] MEDS ORDERED: POTASSIUM CHLORIDE ER 8 MEQ TAB PO STA (10:16)
[2021-07-08 10:25] LABS: BUN/Creatinine Ratio 10; Bilirubin,Direct < 0.2 mg/dL (0-0.2)
[2021-07-08] MEDS ORDERED: POTASSIUM CHLORIDE ER 20 MEQ TAB PO NR (10:30)
[2021-07-08] MEDS ORDERED: HYDROmorphone 1 MG/1 ML INJ IV ONE ×3 (11:16→12:26)
[2021-07-08] MEDS ORDERED: MAGNESIUM OXIDE 400 MG TAB PO STA (11:17)
[2021-07-08] MEDS ORDERED: metroNIDAZOLE/NS 500 MG/100 ML 500 MG/100 ML BAG IV ONE (12:08)
--- NOTE | 2021-07-08 12:26 | Cat Scan Report ---
CT ABDOMEN AND PELVIS WITH CONTRAST HISTORY: acute abd pain s/p colonoscopy. COMPARISON: None. TECHNIQUE: Helical CT images of the abdomen and pelvis were obtained following administration of intr avenous contrast. Sagittal and coronal reformatted images were reviewed. [facility] CT [facility] are performed using CT dose reduction for ALARA by means of automated exposure control. CONTRAST: Omnipaque 300 100 ml of intravenous contrast administered. FINDINGS: Abdomen/pelvis: There is mild to moderate free air in the abdomen. Visceral perforation is suspected until proven otherwise. With given history, colonic perforation is suspected although the site of pe rforation is not clearly evident. There is suggestion of narrowing in the rectosigmoid region in the pelvis. Mild circumferential bowel wall thickening with shouldering is identified in this area which is best demonstrated on image 66, series 4. Rectosigmoid mass/apple core lesion is difficult to exclude. The remainder of the GI system is grossly unremarkable given no oral contrast was administered. The liver, biliary system, pancreas, spleen, kidneys and adrenal glands are unremarkable. The vascular structures are patent. Mild atherosclerotic disease is noted in the abdominal aorta. No aneurysm. No adenopathy or fluid collection. There is small free fluid in the pelvis. The uterus, adnexa and bladder are unremarkable. Lungs/bones: No significant abnormality. IMPRESSION: Mild to moderate free air is identified in the abdomen concerning for visceral perforation. See above . Although this exam is slightly limited without oral contrast, there is suggestion of a mass in the re ctosigmoid region. Please see above. CRITICAL RESULT: Time of Discovery (PIZZA MAKER/CDT): 1105 hours Time of Communication (PIZZA MAKER/CDT): 1107 hours Licensed Practitioner Receiving Report: Dr. Lema Read-Back Performed: Yes. Signer Name: Jeevan Rodriguez Jr, MD Signed: 07/08/2021 12:21 PM Workstation Name: [id number]
[2021-07-08] MEDS ORDERED: MAGNESIUM SULFATE 2 GM/50 ML BAG IV ONE (12:27)
[2021-07-08] MEDS: POTASSIUM CHLORIDE 10 MEQ 10 MEQ/100 ML BAG IV SCH (12:29)
[2021-07-08] MEDS ORDERED: MIDAZOLAM 2 MG/2 ML INJ ONE (13:52)
[2021-07-08] MEDS ORDERED: LIDOCAINE MPF (2%) 20 MG/1 ML VIAL 5 ML ONE (13:52)
[2021-07-08] MEDS ORDERED: fentaNYL 100 MCG/2 ML INJ ONE (13:52)
[2021-07-08] MEDS ORDERED: SUCCINYLCHOLINE CHLORIDE 200 MG/10 ML INJ MDV ONE (13:52)
[2021-07-08] MEDS ORDERED: ROCURONIUM 50 MG/5 ML INJ IV ONE (13:52)
[2021-07-08] MEDS ORDERED: propofoL 200 MG/20 ML VIAL IV ONE (13:53)
[2021-07-08] MEDS ORDERED: MORPHINE 2 MG/1 ML INJ IV PRN (13:57)
[2021-07-08] MEDS ORDERED: ACETAMINOPHEN 325 MG TAB PO PRN (13:57)
[2021-07-08] MEDS ORDERED: ONDANSETRON 4 MG/2 ML INJ IV PRN ×2 (13:57→17:10)
[2021-07-08] MEDS ORDERED: SODIUM CHLORIDE 0.9% 1000 ML 1,000 ML IV SCH (14:00)
--- NOTE | 2021-07-08 14:01 | Anesthesia Day of Surgery ---
Anesthesia Day of Surgery - Day of Surgery Patient Examined: Yes Patient H&P Reviewed: Yes Patient is NPO: Yes
--- NOTE | 2021-07-08 14:01 | Anesthesia Consultation ---
Anesthesia Consult and Med Hx Date of service: 07/08/21 - Airway Anesthetic Teeth Evaluation: Poor (multiple miising teeth) - Pulmonary Hx Smoking: Yes (1/2 ppd) Hx Asthma: Yes COPD: Yes Hx Pneumonia: No - Cardiovascular System Hx Hypertension: Yes - Gastrointestinal Hx Gastroesophageal Reflux Disease: Yes - Endocrine Hx End Stage Renal Disease: No - Other Systems Hx Alcohol Use: Yes - Additional Comments Anesthesia Medical History Comments: had colonoscopy at [facility] on July 06 (?). Abdominal pain after. Free air on the CT. Scheduled for Exploratory Laparotomy by
[2021-07-08] MEDS: HYDROmorphone 1 MG/1 ML INJ IV PRN (15:18)
--- NOTE | 2021-07-08 16:02 | Consultation ---
History of Present Illness Consult date: 07/08/21 Reason for consult: abdominal pain - History of present illness History of present illness: 60 yo BF with co abdominal pain that she awoke with at am today. Pain started in the LLQ and then spread thruout the abdomin. Pt with colonoscopy for CRC screening yesterday at [facility] . Verbal report from MAE Bhat who was present during the procedure is that no tumor or polyps were seen. CT of abdo is with free air in the abdominal cavity. Medications and Allergies Allergies Allergy/AdvReac Type Severity Reaction Status Date / Time Penicillins Allergy Unknown Verified 07/21/20 23:06 tomato sauce Allergy Unknown Uncoded 07/21/20 23:13 Home Medications Medication Instructions Recorded Confirmed Last Taken Type Folic Acid 1 mg PO DAILY #30 tablet 07/24/20 Unknown Rx Thiamine [Vitamin B-1] 100 mg PO QDAY #30 tablet 07/24/20 Unknown Rx metroNIDAZOLE [Flagyl TAB] 500 mg PO Q8HR #14 tablet 07/24/20 Unknown Rx Active Meds: Active Medications Acetaminophen (Acetaminophen 325 Mg Tab) 650 mg PO Q4H PRN PRN Reason: Pain MILD(1-3)/Fever >100.5/LOTT Famotidine (Famotidine 20 Mg/2 Ml Inj) 20 mg IV BID ISIDORO Hydromorphone HCl (Hydromorphone 1 Mg/1 Ml Inj) 0.5 mg IV Q3H PRN PRN Reason: Pain , Severe (7-10) Last Admin: 07/08/21 15:18 Dose: 0.5 mg Potassium Chloride (Kcl 10meq/100ml) 10 meq in 100 mls @ 100 mls/hr IV Q1H ISIDORO Stop: 07/08/21 16:59 Last Admin: 07/08/21 12:29 Dose: 100 mls/hr Sodium Chloride (Nacl 0.9% 1000 Ml) 1,000 mls @ 125 mls/hr IV DIRECT ISIDORO Piperacillin Sod/Tazobactam Sod (Zosyn/Ns 4.5gm/100ml) 4.5 gm in 100 mls @ 200 mls/hr IV Q8HR ISIDORO; Protocol Morphine Sulfate (Morphine 2 Mg/1 Ml Inj) 2 mg IV Q4H PRN PRN Reason: Pain, Moderate (4-6) Ondansetron HCl (Ondansetron 4 Mg/2 Ml Inj) 4 mg IV Q8H PRN PRN Reason: Nausea And Vomiting Sodium Chloride (Sodium Chloride 0.9% 10 Ml Flush Syringe) 10 ml IV BID ISIDORO Sodium Chloride (Sodium Chloride 0.9% 10 Ml Flush Syringe) 10 ml IV PRN PRN PRN Reason: LINE FLUSH Exam Vital Signs Temp Pulse Resp BP Pulse Ox 98.3 F 78 18 106/60 100 07/08/21 08:35 07/08/21 08:35 07/08/21 08:35 07/08/21 08:35 07/08/21 08:35 - General physical appearance Positive: well developed, severe distress - Eyes Positive: PERRL - Neck Positive: no masses, no bruits, trachea midline - Respiratory Positive: normal expansion - Cardiovascular Rhythm: regular - Extremities Extremities: no ischemia, No edema - Abdomen Abdomen: Present: soft, tender, guarding, rigid Hernia: none - Integumentary no rash - Neurologic Neurologic: alert and oriented to time, place and person, motor strength and sensation are grossly intact, CN II-XII intact Results - Labs 07/08/21 09:29 07/08/21 09:29 Abnormal lab results 07/08/21 07/08/21 07/08/21 Range/Units 09:29 09:29 09:29 MCH 27 L (28-32) pg RDW 16.9 H (13.2-15.2) % Lymph % (Auto) 9.1 L (13.4-35.0) % Lymph # (Auto) 0.8 L (1.2-5.4) K/mm3 Seg Neutrophils % 86.5 H (40.0-70.0) % Potassium 3.2 L (3.6-5.0) mmol/L BUN 6 L (7-17) mg/dL Glucose 113 H (65-100) mg/dL Magnesium 1.50 L (1.7-2.3) mg/dL Diabetes panel 07/08/21 Range/Units 09:29 Sodium 142 (137-145) mmol/L Potassium 3.2 L (3.6-5.0) mmol/L Chloride 104.5 (98-107) mmol/L Carbon Dioxide 23 (22-30) mmol/L BUN 6 L (7-17) mg/dL Creatinine 0.6 (0.6-1.2) mg/dL Glucose 113 H (65-100) mg/dL Calcium 9.0 (8.4-10.2) mg/dL AST 16 (5-40) units/L ALT 12 (7-56) units/L Alkaline Phosphatase 78 (35-129) units/L Total Protein 7.3 (6.3-8.2) g/dL Albumin 4.0 (3.9-5) g/dL Calcium panel 07/08/21 Range/Units 09:29 Calcium 9.0 (8.4-10.2) mg/dL Albumin 4.0 (3.9-5) g/dL Pituitary panel 07/08/21 Range/Units 09:29 Sodium 142 (137-145) mmol/L Potassium 3.2 L (3.6-5.0) mmol/L Chloride 104.5 (98-107) mmol/L Carbon Dioxide 23 (22-30) mmol/L BUN 6 L (7-17) mg/dL Creatinine 0.6 (0.6-1.2) mg/dL Glucose 113 H (65-100) mg/dL Calcium 9.0 (8.4-10.2) mg/dL Adrenal panel 07/08/21 Range/Units 09:29 Sodium 142 (137-145) mmol/L Potassium 3.2 L (3.6-5.0) mmol/L Chloride 104.5 (98-107) mmol/L Carbon Dioxide 23 (22-30) mmol/L BUN 6 L (7-17) mg/dL Creatinine 0.6 (0.6-1.2) mg/dL Glucose 113 H (65-100) mg/dL Calcium 9.0 (8.4-10.2) mg/dL Total Bilirubin 0.30 (0.1-1.2) mg/dL AST 16 (5-40) units/L ALT 12 (7-56) units/L Alkaline Phosphatase 78 (35-129) units/L Total Protein 7.3 (6.3-8.2) g/dL Albumin 4.0 (3.9-5) g/dL Assessment and Plan Pt with free air in the abdo and peritoneal signs. Will start with laprascopic exploration. Pt may need colon resection with a diversion. She agrees to proceed.
[2021-07-08] MEDS ORDERED: ePHEDrine SULFATE 50 MG/1 ML INJ ONE (16:31)
[2021-07-08] MEDS ORDERED: HYDROmorphone 1 MG/1 ML INJ IV PRN ×2 (17:10)
[2021-07-08] MEDS ORDERED: NEOSTIGMINE 10MG/10 ML INJ MDV ONE (17:54)
[2021-07-08] MEDS ORDERED: PHENYLEPHRINE/NS 1,000 MCG/10 ML SYRINGE (OR USE) IV ONE (17:54)
[2021-07-08] MEDS ORDERED: GLYCOPYRROLATE 0.4 MG/2 ML INJ ONE (17:54)
[2021-07-08] MEDS ORDERED: SODIUM CHLORIDE 0.9% IRRIG SOLN 2000 ML IR ONE (18:06)
--- NOTE | 2021-07-08 18:59 | Operative Report ---
Operative Report Operative Report: Date: 07/08/2021 Preop diagnosis: Perforated viscus Postop diagnosis: Small perforation of the colon at the sigmoid descending colon junction. Procedure: Exploratory laparotomy, irrigation of the peritoneal cavity, suture repair of enterotomy with omental patch Surgeon: Dr. Lizama Assistants: Dr. Fam Anesthesia: General endotracheal anesthesia Estimated blood loss: 700 cc Drains: 1 KATERINA drain to pelvis and left colic gutter Findings: This is a 60-year-old -[place] lady who reported to the emergency room with complaints of abdominal pain. She was found to have free air within the abdominal cavity on CAT scan of the abdomen and pelvis. She had had a colonoscopy at [facility] yesterday. Reports from [facility] indicated that the colonoscopy was normal without tumors or polyps. Patient is taken to the OR and timeouts and consents are completed. Under general endotracheal endotracheal anesthesia the abdomen is prepped with ChloraPrep and draped in a sterile fashion. A 5 mm port is placed in the right subcostal position. A 5 mm Visiport is used. Insufflation at this position is tried but fails with high pressures noted. A counterincision is made in the left upper quadrant a Veress needle was used to gain access to the abdominal cavity and insufflation is done without incident. The 5 mm port in the right upper quadrant is established and a 5 mm rent in the liver is noted. There is also hemoperitoneum that is noted. A 12 Mm port is placed in the supraumbilical position and a second 5 mm port is placed in the right lower quadrant position a surgical gauze is placed into the abdomen and pressure was held over the liver. Bleeding is stopped with pressure. The area of concern is cauterized with a electrocautery hook. Abdomen is irrigated with saline and clot is evacuated. About 700 cc of blood loss is noted. The colon is examined in the rectum and rectosigmoid area without sign of any injury. The sigmoid is examined and is normal. Some fibrinous exudate is noted in the proximal sigmoid colon at its junction with the descending colon. And af ter further examination the perforation is found. It is about 4 mm across. The amount of peritoneal soilage from this is minimal. Inflammation to the area is also noted but is minimal. A 2-0 Vicryl suture is used to close the perforation. The same suture was used to buttress the repair with an omental patch. The remainder of the colon is irrigated with copious amounts of saline. Saline is aspirated. A KATERINA drain is advanced through the right lower quadrant portal incision. The KATERINA is allowed to go down into the pelvis and then up along the sidewall and the left colic gutter. The surgical sponge that was placed into the abdomen is removed. Sponge and needle counts are correct. 2-0 Vicryl was used to close the fascial defect in the supraumbilical position. The other two 5 mm ports are then removed. Skin is closed with 4-0 Monocryl and Dermabond. Patient tolerated procedure well.
[2021-07-08] MEDS ORDERED: SUGAMMADEX SODIUM 200 MG/2 ML VIAL IV ONE (19:08)
[2021-07-08 19:28] LABS: Mean Corpuscular HGB Conc 30 % (30-34); Mean Corpuscular Volume 88 fl (79-97); Platelet Count 111 K/mm3 (140-440); Red Blood Count 3.64 M/mm3 (3.65-5.03); Red Cell Distribution Width 16.7 % (13.2-15.2)
[2021-07-08 19:40] LABS: Hematocrit 32.1 % (30.3-42.9); Hemoglobin 9.6 gm/dl (10.1-14.3)
[2021-07-08 19:44] LABS: Alanine Aminotransferase 21 units/L (7-56); BUN/Creatinine Ratio 10; Blood Urea Nitrogen 8 mg/dL (7-17); Calcium 6.4 mg/dL (8.4-10.2); Hemolysis Index 0
--- NOTE | 2021-07-08 19:46 | XRay Report ---
CHEST 1 VIEW 07/08/2021 6:39 PM INDICATION / CLINICAL INFORMATION: post op. COMPARISON: 07/21/2020. FINDINGS: SUPPORT DEVICES: None. HEART / MEDIASTINUM: No significant abnormality. LUNGS / PLEURA: Increasing opacity at the bases is relatively symmetric. Mild increasing vascular con gestion. No pneumothorax. ADDITIONAL FINDINGS: No significant additional findings. IMPRESSION: Suspect a combination of vascular congestion and basilar atelectasis unless there is clin ical evidence of aspiration. Signer Name: Maurice Camarena MD Signed: 07/08/2021 7:42 PM Workstation Name: [id number]
[2021-07-08] MEDS ORDERED: SODIUM CHLORIDE 0.9% 500 ML 500 ML IV ONE (19:56)
--- NOTE | 2021-07-08 20:01 | Post Anesthesia Evaluation ---
- Post Anesthesia Evaluation Patient Participated: Yes Airway Patent: Yes Stable Respiratory Function: Yes Nausea/Vomiting: No Temp > 96.8F: Yes Pain Manageable: Yes Adequeate Hydration: No (Giving more IVF and PRBC ordered. Colonoscopy prep) Anesthesia Complications: No Block Receding Appropriately: No Patient on Ventilator: No
[2021-07-08] MEDS: PIPERACIL/TAZOBACTA 4.5/NS 100 4.5 GM/100 ML VIAL IV SCH (22:57)
[2021-07-08] MEDS: FAMOTIDINE 20 MG/2 ML INJ IV SCH (22:58)
[2021-07-09] MEDS: KETOROLAC 30 MG/1 ML INJ IV PRN ×4 (00:07→17:24)
[2021-07-09 03:53] LABS: Basophils % (Auto) 0.2 % (0.0-1.8); Eosinophils % (Auto) 0.3 % (0.0-4.3); Hematocrit 32.6 % (30.3-42.9); Lymphocytes # (Auto) 1.8 K/mm3 (1.2-5.4); Lymphocytes % (Auto) 14.7 % (13.4-35.0); Mean Corpuscular HGB Conc 31 % (30-34); Mean Corpuscular Volume 88 fl (79-97); Monocytes # (Auto) 0.6 K/mm3 (0.0-0.8); Monocytes % (Auto) 4.8 % (0.0-7.3); Red Blood Count 3.72 M/mm3 (3.65-5.03); Red Cell Distribution Width 16.3 % (13.2-15.2)
[2021-07-09 04:05] LABS: BUN/Creatinine Ratio 15; Blood Urea Nitrogen 9 mg/dL (7-17); Calcium 6.5 mg/dL (8.4-10.2); Hemolysis Index 3; Platelet Count 84 K/mm3 (140-440)
[2021-07-09] MEDS: PIPERACIL/TAZOBACTA 4.5/NS 100 4.5 GM/100 ML VIAL IV SCH ×4 (06:00→23:45)
--- NOTE | 2021-07-09 07:09 | History and Physical Report ---
History of Present Illness Date of examination: 07/08/21 Date of admission: 07/08/21 12:40 Chief complaint: Abdominal pain for 1 day Nausea and vomiting for 1 day History of present illness: The patient is a 60-year-old female. I have evaluated this patient in the past. The patient reports having had an outpatient colonoscopy yesterday at another facility, [facility]. 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 She does not know the results of her colonoscopy her abdominal pain is sharp and throbbing and diffuse. Pain is about 10 on a scale of 1-10. No diarrhea. Nausea vomiting present. Very uncomfortable. No exacerbating or relieving factors. ED course: Patient was diagnosed with pneumoperitoneum and possible colon perforation. - Past Medical History --Previous Medical History?: Yes --Hypertension: Yes --Diabetes: (pt denies) --Asthma: Yes --COPD: Yes --Additional medical history: Alcohol withdrawals, pancreatitis - Surgical History --Additional Surgical History: knee, stomach - Social History --Smoking Status: Current Every Day Smoker - Medications Home Medications: Home Medications Medication Instructions Recorded Confirmed Last Taken Type Folic Acid 1 mg PO DAILY #30 tablet 07/24/20 Unknown Rx Thiamine [Vitamin B-1] 100 mg PO QDAY #30 tablet 07/24/20 Unknown Rx metroNIDAZOLE [Flagyl TAB] 500 mg PO Q8HR #14 tablet 07/24/20 Unknown Rx Review of Systems ROS: Stated complaint: Abdominal Pain Other details as noted in HPI Constitutional: malaise, weakness. denies: fever Eyes: denies: eye discharge ENT: denies: epistaxis Respiratory: denies: cough Cardiovascular: denies: chest pain Gastrointestinal: abdominal pain, nausea, vomiting Genitourinary: denies: dysuria Musculoskeletal: back pain Neurological: weakness Hematological/Lymphatic: denies: easy bleeding Medications and Allergies Allergies Allergy/AdvReac Type Severity Reaction Status Date / Time Penicillins Allergy Unknown Verified 07/21/20 23:06 tomato sauce Allergy Unknown Uncoded 07/21/20 23:13 Home Medications Medication Instructions Recorded Confirmed Last Taken Type Folic Acid 1 mg PO DAILY #30 tablet 07/24/20 Unknown Rx Thiamine [Vitamin B-1] 100 mg PO QDAY #30 tablet 07/24/20 Unknown Rx metroNIDAZOLE [Flagyl TAB] 500 mg PO Q8HR #14 tablet 07/24/20 Unknown Rx Active Meds: Active Medications Acetaminophen (Acetaminophen 325 Mg Tab) 650 mg PO Q4H PRN PRN Reason: Pain MILD(1-3)/Fever >100.5/LOTT Famotidine (Famotidine 20 Mg/2 Ml Inj) 20 mg IV BID [facility] Last Admin: 07/08/21 22:58 Dose: 20 mg Hydromorphone HCl (Hydromorphone 1 Mg/1 Ml Inj) 0.5 mg IV Q3H PRN PRN Reason: Pain , Severe (7-10) Last Admin: 07/08/21 15:18 Dose: 0.5 mg Hydromorphone HCl (Hydromorphone 1 Mg/1 Ml Inj) 0.25 mg IV Q10MIN PRN PRN Reason: Pain, Moderate (4-6) Hydromorphone HCl (Hydromorphone 1 Mg/1 Ml Inj) 0.5 mg IV Q10MIN PRN PRN Reason: Pain , Severe (7-10) Sodium Chloride (Nacl 0.9% 1000 Ml) 1,000 mls @ 125 mls/hr IV DIRECT ISIDORO Piperacillin Sod/Tazobactam Sod (Zosyn/Ns 4.5gm/100ml) 4.5 gm in 100 mls @ 200 mls/hr IV Q8HR [facility]; Protocol Last Admin: 07/08/21 22:57 Dose: 200 mls/hr Ketorolac Tromethamine (Ketorolac 30 Mg/1 Ml Inj) 15 mg IV Q6HR PRN PRN Reason: Colic PAIN Stop: 07/10/21 23:59 Last Admin: 07/09/21 05:43 Dose: 15 mg Morphine Sulfate (Morphine 2 Mg/1 Ml Inj) 2 mg IV Q4H PRN PRN Reason: Pain, Moderate (4-6) Ondansetron HCl (Ondansetron 4 Mg/2 Ml Inj) 4 mg IV Q8H PRN PRN Reason: Nausea And Vomiting Ondansetron HCl (Ondansetron 4 Mg/2 Ml Inj) 4 mg IV ONCE PRN PRN Reason: Nausea And Vomiting Sodium Chloride (Sodium Chloride 0.9% 10 Ml Flush Syringe) 10 ml IV BID [facility] Sodium Chloride (Sodium Chloride 0.9% 10 Ml Flush Syringe) 10 ml IV PRN PRN PRN Reason: LINE FLUSH Exam - Constitutional Vitals: Temp Pulse Resp BP Pulse Ox 98.3 F 82 17 92/54 100 07/09/21 05:05 07/09/21 05:05 07/09/21 05:43 07/09/21 05:05 07/09/21 05:05 General appearance: Present: mild distress, well-nourished - EENT Eyes: Present: PERRL ENT: hearing intact, clear oral mucosa - Neck Neck: Present: supple, normal ROM - Respiratory Respiratory effort: normal Respiratory: bilateral: CTA - Cardiovascular Heart rate: 78 Rhythm: regular Heart Sounds: Present: S1 & S2. Absent: rub, click - Extremities Extremities: pulses symmetrical, No edema Peripheral Pulses: within normal limits - Abdominal General gastrointestinal: Present: tender, non-distended, normal bowel sounds Localized gastrointestinal: tender: diffuse, guarding: diffuse, rebound: diffuse Female genitourinary: Present: normal - Integumentary Integumentary: Present: clear, warm, dry - Musculoskeletal Musculoskeletal: gait normal, strength equal bilaterally - Psychiatric Psychiatric: appropriate mood/affect, intact judgment & insight - Neurologic Neurologic: CNII-XII intact, moves all extremities Results - Labs CBC & Chem 7: 07/09/21 03:34 07/09/21 03:34 Labs: Laboratory Last Values WBC 12.5 K/mm3 (4.5-11.0) H 07/09/21 03:34 RBC 3.72 M/mm3 (3.65-5.03) 07/09/21 03:34 Hgb 10.0 gm/dl (10.1-14.3) L 07/09/21 03:34 Hct 32.6 % (30.3-42.9) 07/09/21 03:34 MCV 88 fl (79-97) 07/09/21 03:34 MCH 27 pg (28-32) L 07/09/21 03:34 MCHC 31 % (30-34) 07/09/21 03:34 RDW 16.3 % (13.2-15.2) H 07/09/21 03:34 Plt Count 84 K/mm3 (140-440) L 07/09/21 03:34 Lymph % (Auto) 14.7 % (13.4-35.0) 07/09/21 03:34 [place] % (Auto) 4.8 % (0.0-7.3) 07/09/21 03:34 Eos % (Auto) 0.3 % (0.0-4.3) 07/09/21 03:34 Baso % (Auto) 0.2 % (0.0-1.8) 07/09/21 03:34 Lymph # (Auto) 1.8 K/mm3 (1.2-5.4) 07/09/21 03:34 [place] # (Auto) 0.6 K/mm3 (0.0-0.8) 07/09/21 03:34 Eos # (Auto) 0.0 K/mm3 (0.0-0.4) 07/09/21 03:34 Baso # (Auto) 0.0 K/mm3 (0.0-0.1) 07/09/21 03:34 Seg Neutrophils % 80.0 % (40.0-70.0) H 07/09/21 03:34 Seg Neutrophils # 10.0 K/mm3 (1.8-7.7) H 07/09/21 03:34 PT 13.7 Sec. (12.2-14.9) 07/08/21 09:29 INR 0.95 (0.87-1.13) 07/08/21 09:29 Sodium 143 mmol/L (137-145) 07/09/21 03:34 Potassium 3.6 mmol/L (3.6-5.0) 07/09/21 03:34 Chloride 113.6 mmol/L (98-107) H 07/09/21 03:34 Carbon Dioxide 19 mmol/L (22-30) L 07/09/21 03:34 Anion Gap 14 mmol/L 07/09/21 03:34 BUN 9 mg/dL (7-17) 07/09/21 03:34 Creatinine 0.6 mg/dL (0.6-1.2) 07/09/21 03:34 Estimated GFR > 60 ml/min 07/09/21 03:34 BUN/Creatinine Ratio 15 % 07/09/21 03:34 Glucose 109 mg/dL (65-100) H 07/09/21 03:34 Lactic Acid 1.90 mmol/L (0.7-2.0) 07/08/21 09:29 Calcium 6.5 mg/dL (8.4-10.2) L 07/09/21 03:34 Magnesium 1.50 mg/dL (1.7-2.3) L 07/08/21 09:29 Total Bilirubin 0.20 mg/dL (0.1-1.2) 07/08/21 Unknown Direct Bilirubin < 0.2 mg/dL (0-0.2) 07/08/21 09:29 Indirect Bilirubin 0.1 mg/dL 07/08/21 09:29 AST 40 units/L (5-40) 07/08/21 Unknown ALT 21 units/L (7-56) 07/08/21 Unknown Alkaline Phosphatase 58 units/L (35-129) 07/08/21 Unknown Total Creatine Kinase 71 units/L (30-135) 07/08/21 09:29 Total Protein 5.0 g/dL (6.3-8.2) L D 07/08/21 Unknown Albumin 3.0 g/dL (3.9-5) L 07/08/21 Unknown Albumin/Globulin Ratio 1.5 % 07/08/21 Unknown Lipase 21 units/L (13-60) 07/08/21 09:29 Blood Type B POSITIVE 07/08/21 12:44 Antibody Screen Negative 07/08/21 12:44 Crossmatch See Detail 07/08/21 12:44 Short CBC 07/08/21 07/08/21 07/09/21 Range/Units 09:29 Unknown 03:34 WBC 8.5 16.5 H 12.5 H (4.5-11.0) K/mm3 Hgb 13.1 9.6 L D 10.0 L (10.1-14.3) gm/dl Hct 41.1 32.1 D 32.6 (30.3-42.9) % Plt Count 144 111 L 84 L (140-440) K/mm3 BMP 07/08/21 07/08/21 07/09/21 09:29 Unknown 03:34 Sodium 142 142 143 Potassium 3.2 L 3.9 D 3.6 Chloride 104.5 111.9 H 113.6 H Carbon Dioxide 23 19 L 19 L BUN 6 L 8 9 Creatinine 0.6 0.8 0.6 Glucose 113 H 186 H 109 H Calcium 9.0 6.4 L D 6.5 L Cardiac Enzymes 07/08/21 Range/Units 09:29 Total Creatine Kinase 71 (30-135) units/L Liver Function 07/08/21 07/08/21 Range/Units 09:29 Unknown Total Bilirubin 0.30 0.20 (0.1-1.2) mg/dL Direct Bilirubin < 0.2 (0-0.2) mg/dL AST 16 40 (5-40) units/L ALT 12 21 (7-56) units/L Alkaline Phosphatase 78 58 (35-129) units/L Albumin 4.0 3.0 L (3.9-5) g/dL Microbiology: Microbiology 07/08/21 12:33 Peripheral/Venous Blood Culture - Preliminary Culture in Progress 07/08/21 12:33 Peripheral/Venous Blood Culture - Preliminary Culture in Progress - Imaging and Cardiology Imaging and Cardiology: Abdominal CAT scan Mild to moderate free air identified in the abdomen concerning for visceral perforation. There is mild to moderate free air in the abdomen. Residual perforation suspected". With the given history of colonic perforation suspected to site of perforation is not clearly evident. Evans/IV: Voiding Method Indwelling Catheter Assessment and Plan Advance Directives: Yes (Full code) Plan of care discussed with patient/family: Yes - Patient Problems (1) Peritonitis (acute) generalized Current Visit: Yes Status: Acute Plan to address problem: Highly likely secondary to colon perforation after colonoscopy (2) Pneumoperitoneum Current Visit: Yes Status: Acute Plan to address problem: Patient receiving the surgery IV Zosyn initiated IV fluids initiated (3) Hypokalemia Current Visit: Yes Status: Acute Plan to address problem: Supplemented (4) Hypomagnesemia Current Visit: Yes Status: Acute Plan to address problem: Supplemented (5) Hypertension Current Visit: Yes Status: Chronic Qualifiers: Hypertension type: primary hypertension Qualified Code(s): I10 - Essential (primary) hypertension Plan to address problem: Patient is hypotensive now Hold blood pressure medications (6) T2DM (type 2 diabetes mellitus) Current Visit: Yes Status: Chronic Qualifiers: Diabetes mellitus gaming host insulin use: unspecified longterm insulin use status Plan to address problem: Coverage for now (7) Colon perforation Current Visit: Yes Status: Acute (8) Colon perforation Current Visit: Yes Status: Acute Plan to address problem: Patient being taken for surgery Secondary to colonoscopy (9) DVT prophylaxis Current Visit: Yes Status: Acute Plan to address problem: On SCDs and GI prophylaxis (10) Advance care planning Current Visit: Yes Status: Acute Plan to address problem: Disease education conducted, care plan discussed, diagnosis discussed, prognosis discussed. Patient is full code. Patient on acknowledges understanding and agreement with care plan. +30 minutes.
[2021-07-09] MEDS: INSULIN LISPRO 100 UNIT/ML SUB-Q SCH ×3 (07:30→19:42)
--- NOTE | 2021-07-09 08:48 | Electrocardiograph Report ---
[facility] Test Date: 2021-07-08 Test Time: 10:25:35 Pat Name: JAILENE DELVALLE Department: Room: A382 1 Gender: F Sheet Catcher: MAYRA : 1960 Requested By: SHEREE GUO Order Number: [id number] Reading MD: James Crane Measurements Intervals [place] Rate: 89 P: 73 TN: 134 QRS: 64 QRSD: 89 T: 81 QT: 381 QTc: 463 Interpretive Statements Sinus rhythm Biatrial enlargement No previous ECG available for comparison Electronically Signed On 07-09-2021 8:48:25 EST by James Crane
[2021-07-09] MEDS ORDERED: MAGNESIUM SULFATE 2 GM/50 ML BAG IV ONE (09:00)
[2021-07-09] MEDS ORDERED: SODIUM CHLORIDE 0.9% 50 ML IVPB IV PRN (09:08)
--- NOTE | 2021-07-09 09:21 | Progress Note ---
Assessment and Plan Assessment and plan: 60 yo BF with past medical history of HTN, COPD, tobacco smoking alcohol abuse and pancreatitis presents with abdominal pain that she awoke with at am today. Pain started in the LLQ and then spread thruout the abdomin. Patient underwent colonoscopy for CRC screening yesterday at [facility] . Verbal report from MAE Bhat who was present during the procedure is that no tumor or polyps were seen. CT of abdo is with free air in the abdominal cavity. (1) colon perforation, post colonoscopy/iatrogenic Current Visit: Yes Status: Acute Plan to address problem: Some bleeding from perforation noted intraoperatively status post surgical repair with a patch on 07/08 emergently Some fibrinous exudate is noted in the proximal sigmoid colon at its junction with the descending colon with perforation, 4 mm in size. Remains hemodynamically stable postoperatively N.p.o. for postoperative ileus, continue IV fluids for hydration As needed pain medications and antiemetics General surgery following (2) possible peritonitis Current Visit: Yes Status: Acute Plan to address problem: Minimal soiling as per intraoperative report IV Zosyn initiated IV fluids initiated Leukocytosis resolving, remains afebrile and hemodynamically stable (3) Hypokalemia Current Visit: Yes Status: Acute Plan to address problem: Supplemented (4) Hypomagnesemia Current Visit: Yes Status: Acute Plan to address problem: Supplemented (5) Hypertension Current Visit: Yes Status: Chronic Qualifiers: Hypertension type: primary hypertension Qualified Code(s): I10 - Essential (primary) hypertension Plan to address problem: Patient is hypotensive now Hold blood pressure medications (6) T2DM (type 2 diabetes mellitus) Current Visit: Yes Status: Chronic Qualifiers: Diabetes mellitus senior care insulin use: unspecified senior care insulin use status Plan to address problem: Coverage for now (7) DVT prophylaxis Current Visit: Yes Status: Acute Plan to address problem: On SCDs and GI prophylaxis (8) Advance care planning Current Visit: Yes Status: Acute Plan to address problem: Disease education conducted, care plan discussed, diagnosis discussed, prognosis discussed. Patient is full code. Patient on acknowledges understanding and agreement with care plan. +30 minutes. History Interval history: Patient is n.p.o. except ice chips. There is some serosanguineous fluid in drainage bulb. No flatus or BM. Complains of abdominal pain and some nausea. Afebrile and hemodynamically stable. No chest pain, dyspnea or palpitations. Has some cough. Smoker. Hospitalist Physical - Constitutional Vitals: Temp Pulse Resp BP Pulse Ox 98.3 F 82 17 92/54 100 07/09/21 05:05 07/09/21 05:05 07/09/21 06:13 07/09/21 05:05 07/09/21 05:05 General appearance: Present: mild distress, well-nourished - EENT Eyes: Present: PERRL, EOM intact ENT: clear oral mucosa - Neck Neck: Present: normal ROM - Respiratory Respiratory effort: normal Respiratory: bilateral: diminished - Cardiovascular Rhythm: regular - Extremities Extremities: No edema - Abdominal General gastrointestinal: soft, non-tender, absent bowel sounds, other (Some tenderness consistent with postoperative state) Results - Labs CBC & Chem 7: 07/11/21 05:37 07/11/21 05:37 Labs: Laboratory Last Values WBC 12.5 K/mm3 (4.5-11.0) H 07/09/21 03:34 RBC 3.72 M/mm3 (3.65-5.03) 07/09/21 03:34 Hgb 10.0 gm/dl (10.1-14.3) L 07/09/21 03:34 Hct 32.6 % (30.3-42.9) 07/09/21 03:34 MCV 88 fl (79-97) 07/09/21 03:34 MCH 27 pg (28-32) L 07/09/21 03:34 MCHC 31 % (30-34) 07/09/21 03:34 RDW 16.3 % (13.2-15.2) H 07/09/21 03:34 Plt Count 84 K/mm3 (140-440) L 07/09/21 03:34 Lymph % (Auto) 14.7 % (13.4-35.0) 07/09/21 03:34 [place] % (Auto) 4.8 % (0.0-7.3) 07/09/21 03:34 Eos % (Auto) 0.3 % (0.0-4.3) 07/09/21 03:34 Baso % (Auto) 0.2 % (0.0-1.8) 07/09/21 03:34 Lymph # (Auto) 1.8 K/mm3 (1.2-5.4) 07/09/21 03:34 [place] # (Auto) 0.6 K/mm3 (0.0-0.8) 07/09/21 03:34 Eos # (Auto) 0.0 K/mm3 (0.0-0.4) 07/09/21 03:34 Baso # (Auto) 0.0 K/mm3 (0.0-0.1) 07/09/21 03:34 Seg Neutrophils % 80.0 % (40.0-70.0) H 07/09/21 03:34 Seg Neutrophils # 10.0 K/mm3 (1.8-7.7) H 07/09/21 03:34 PT 13.7 Sec. (12.2-14.9) 07/08/21 09:29 INR 0.95 (0.87-1.13) 07/08/21 09:29 Sodium 143 mmol/L (137-145) 07/09/21 03:34 Potassium 3.6 mmol/L (3.6-5.0) 07/09/21 03:34 Chloride 113.6 mmol/L (98-107) H 07/09/21 03:34 Carbon Dioxide 19 mmol/L (22-30) L 07/09/21 03:34 Anion Gap 14 mmol/L 07/09/21 03:34 BUN 9 mg/dL (7-17) 07/09/21 03:34 Creatinine 0.6 mg/dL (0.6-1.2) 07/09/21 03:34 Estimated GFR > 60 ml/min 07/09/21 03:34 BUN/Creatinine Ratio 15 % 07/09/21 03:34 Glucose 109 mg/dL (65-100) H 07/09/21 03:34 Lactic Acid 1.90 mmol/L (0.7-2.0) 07/08/21 09:29 Calcium 6.5 mg/dL (8.4-10.2) L 07/09/21 03:34 Magnesium 1.50 mg/dL (1.7-2.3) L 07/08/21 09:29 Total Bilirubin 0.20 mg/dL (0.1-1.2) 07/08/21 Unknown Direct Bilirubin < 0.2 mg/dL (0-0.2) 07/08/21 09:29 Indirect Bilirubin 0.1 mg/dL 07/08/21 09:29 AST 40 units/L (5-40) 07/08/21 Unknown ALT 21 units/L (7-56) 07/08/21 Unknown Alkaline Phosphatase 58 units/L (35-129) 07/08/21 Unknown Total Creatine Kinase 71 units/L (30-135) 07/08/21 09:29 Total Protein 5.0 g/dL (6.3-8.2) L D 07/08/21 Unknown Albumin 3.0 g/dL (3.9-5) L 07/08/21 Unknown Albumin/Globulin Ratio 1.5 % 07/08/21 Unknown Lipase 21 units/L (13-60) 07/08/21 09:29 Blood Type B POSITIVE 07/08/21 12:44 Antibody Screen Negative 07/08/21 12:44 Crossmatch See Detail 07/08/21 12:44 Microbiology: Microbiology 07/08/21 12:33 Peripheral/Venous Blood Culture - Preliminary Culture in Progress 07/08/21 12:33 Peripheral/Venous Blood Culture - Preliminary Culture in Progress Evans/IV: Voiding Method Indwelling Catheter Active Medications - Current Medications Current Medications: Generic Name Dose Route Start Last Admin Trade Name Freq PRN Reason Stop Dose Admin Acetaminophen 650 mg 07/08/21 13:57 Acetaminophen 325 Mg Tab PO Q4H PRN Pain MILD(1-3)/Fever >100.5/LOTT Famotidine 20 mg 07/08/21 14:00 07/08/21 22:58 Famotidine 20 Mg/2 Ml Inj IV 20 mg BID [facility] Administration Hydromorphone HCl 0.5 mg 07/08/21 13:57 07/08/21 15:18 Hydromorphone 1 Mg/1 Ml Inj IV 0.5 mg Q3H PRN Administration Pain , Severe (7-10) Hydromorphone HCl 0.25 mg 07/08/21 17:10 Hydromorphone 1 Mg/1 Ml Inj IV 07/09/21 17:09 Q10MIN PRN Pain, Moderate (4-6) Hydromorphone HCl 0.5 mg 07/08/21 17:10 Hydromorphone 1 Mg/1 Ml Inj IV 07/09/21 17:09 Q10MIN PRN Pain , Severe (7-10) Sodium Chloride 1,000 mls @ 125 mls/hr 07/08/21 14:00 Nacl 0.9% 1000 Ml IV DIRECT [facility] Piperacillin Sod/Tazobactam Sod 4.5 gm in 100 mls @ 200 mls/hr 07/08/21 14:00 07/09/21 08:11 Zosyn/Ns 4.5gm/100ml IV Not Given Q8HR [facility] Protocol Magnesium Sulfate 2 gm in 50 mls @ 25 mls/hr 07/09/21 09:00 Magnesium Sulfate 2gm/50ml IV 07/09/21 10:59 ONCE ONE Potassium Chloride 10 meq in 100 mls @ 100 mls/hr 07/09/21 09:00 Kcl 10meq/100ml IV 07/09/21 12:59 Q1H [facility] Insulin Human Lispro 0 unit 07/09/21 07:30 Insulin Lispro 100 Unit/Ml SUB-Q Q6HR [facility] Protocol Ketorolac Tromethamine 15 mg 07/08/21 23:55 07/09/21 05:43 Ketorolac 30 Mg/1 Ml Inj IV 07/10/21 23:59 15 mg Q6HR PRN Administration Colic PAIN Morphine Sulfate 2 mg 07/08/21 13:57 Morphine 2 Mg/1 Ml Inj IV Q4H PRN Pain, Moderate (4-6) Ondansetron HCl 4 mg 07/08/21 13:57 Ondansetron 4 Mg/2 Ml Inj IV Q8H PRN Nausea And Vomiting Ondansetron HCl 4 mg 07/08/21 17:10 Ondansetron 4 Mg/2 Ml Inj IV ONCE PRN Nausea And Vomiting Sodium Chloride 10 ml 07/08/21 22:00 Sodium Chloride 0.9% 10 Ml Flush Syringe IV BID [facility] Sodium Chloride 10 ml 07/09/21 09:08 Sodium Chloride 0.9% 50 Ml Ivpb IV PRN PRN FLUSH
[2021-07-09] MEDS: D5 IV SCH ×2 (10:30→21:34)
[2021-07-09] MEDS: POTASSIUM CHLORIDE IV SCH ×2 (10:30→21:34)
[2021-07-09] MEDS: LACTATED RINGERS IV SCH ×2 (10:30→21:34)
[2021-07-09] MEDS: POTASSIUM CHLORIDE 10 MEQ 10 MEQ/100 ML BAG IV SCH ×5 (11:48→16:31)
[2021-07-09] MEDS: FAMOTIDINE 20 MG/2 ML INJ IV SCH ×2 (11:50→23:44)
--- NOTE | 2021-07-09 14:47 | Post Anesthesia Evaluation ---
- Post Anesthesia Evaluation Patient Participated: Yes Airway Patent: Yes Stable Respiratory Function: Yes Nausea/Vomiting: No Temp > 96.8F: Yes Pain Manageable: Yes (with some pain meds) Adequeate Hydration: Yes (continue IV fluids) Anesthesia Complications: Yes Block Receding Appropriately: Not Applicable Patient on Ventilator: No Other Comments: BP 97/56 @ 10AM
[2021-07-09] MEDS: HYDROmorphone 1 MG/1 ML INJ IV PRN (18:38)
--- NOTE | 2021-07-09 19:28 | Progress Note ---
Hospitalist Physical - Constitutional Vitals: Temp Pulse Resp BP Pulse Ox 98.9 F 86 18 129/52 97 07/09/21 18:09 07/09/21 18:09 07/09/21 18:09 07/09/21 18:09 07/09/21 18:09 General appearance: Present: mild distress, well-nourished Results - Labs CBC & Chem 7: 07/09/21 03:34 07/09/21 03:34 Labs: Laboratory Last Values WBC 12.5 K/mm3 (4.5-11.0) H 07/09/21 03:34 RBC 3.72 M/mm3 (3.65-5.03) 07/09/21 03:34 Hgb 10.0 gm/dl (10.1-14.3) L 07/09/21 03:34 Hct 32.6 % (30.3-42.9) 07/09/21 03:34 MCV 88 fl (79-97) 07/09/21 03:34 MCH 27 pg (28-32) L 07/09/21 03:34 MCHC 31 % (30-34) 07/09/21 03:34 RDW 16.3 % (13.2-15.2) H 07/09/21 03:34 Plt Count 84 K/mm3 (140-440) L 07/09/21 03:34 Lymph % (Auto) 14.7 % (13.4-35.0) 07/09/21 03:34 [place] % (Auto) 4.8 % (0.0-7.3) 07/09/21 03:34 Eos % (Auto) 0.3 % (0.0-4.3) 07/09/21 03:34 Baso % (Auto) 0.2 % (0.0-1.8) 07/09/21 03:34 Lymph # (Auto) 1.8 K/mm3 (1.2-5.4) 07/09/21 03:34 [place] # (Auto) 0.6 K/mm3 (0.0-0.8) 07/09/21 03:34 Eos # (Auto) 0.0 K/mm3 (0.0-0.4) 07/09/21 03:34 Baso # (Auto) 0.0 K/mm3 (0.0-0.1) 07/09/21 03:34 Seg Neutrophils % 80.0 % (40.0-70.0) H 07/09/21 03:34 Seg Neutrophils # 10.0 K/mm3 (1.8-7.7) H 07/09/21 03:34 PT 13.7 Sec. (12.2-14.9) 07/08/21 09:29 INR 0.95 (0.87-1.13) 07/08/21 09:29 Sodium 143 mmol/L (137-145) 07/09/21 03:34 Potassium 3.6 mmol/L (3.6-5.0) 07/09/21 03:34 Chloride 113.6 mmol/L (98-107) H 07/09/21 03:34 Carbon Dioxide 19 mmol/L (22-30) L 07/09/21 03:34 Anion Gap 14 mmol/L 07/09/21 03:34 BUN 9 mg/dL (7-17) 07/09/21 03:34 Creatinine 0.6 mg/dL (0.6-1.2) 07/09/21 03:34 Estimated GFR > 60 ml/min 07/09/21 03:34 BUN/Creatinine Ratio 15 % 07/09/21 03:34 Glucose 109 mg/dL (65-100) H 07/09/21 03:34 POC Glucose 124 mg/dL (70-105) H 07/09/21 18:07 Lactic Acid 1.90 mmol/L (0.7-2.0) 07/08/21 09:29 Calcium 6.5 mg/dL (8.4-10.2) L 07/09/21 03:34 Magnesium 1.50 mg/dL (1.7-2.3) L 07/08/21 09:29 Total Bilirubin 0.20 mg/dL (0.1-1.2) 07/08/21 Unknown Direct Bilirubin < 0.2 mg/dL (0-0.2) 07/08/21 09:29 Indirect Bilirubin 0.1 mg/dL 07/08/21 09:29 AST 40 units/L (5-40) 07/08/21 Unknown ALT 21 units/L (7-56) 07/08/21 Unknown Alkaline Phosphatase 58 units/L (35-129) 07/08/21 Unknown Total Creatine Kinase 71 units/L (30-135) 07/08/21 09:29 Total Protein 5.0 g/dL (6.3-8.2) L D 07/08/21 Unknown Albumin 3.0 g/dL (3.9-5) L 07/08/21 Unknown Albumin/Globulin Ratio 1.5 % 07/08/21 Unknown Lipase 21 units/L (13-60) 07/08/21 09:29 Blood Type B POSITIVE 07/08/21 12:44 Antibody Screen Negative 07/08/21 12:44 Crossmatch See Detail 07/08/21 12:44 Microbiology: Microbiology 07/08/21 12:33 Peripheral/Venous Blood Culture - Preliminary NO GROWTH AFTER 24 HOURS 07/08/21 12:33 Peripheral/Venous Blood Culture - Preliminary NO GROWTH AFTER 24 HOURS Evans/IV: Voiding Method Indwelling Catheter Active Medications - Current Medications Current Medications: Generic Name Dose Route Start Last Admin Trade Name Freq PRN Reason Stop Dose Admin Acetaminophen 650 mg 07/08/21 13:57 Acetaminophen 325 Mg Tab PO Q4H PRN Pain MILD(1-3)/Fever >100.5/LOTT Famotidine 20 mg 07/08/21 14:00 07/09/21 11:50 Famotidine 20 Mg/2 Ml Inj IV 20 mg BID ISIDORO Administration Hydromorphone HCl 0.5 mg 07/08/21 13:57 07/09/21 18:38 Hydromorphone 1 Mg/1 Ml Inj IV 0.5 mg Q3H PRN Administration Pain , Severe (7-10) Piperacillin Sod/Tazobactam Sod 4.5 gm in 100 mls @ 200 mls/hr 07/08/21 14:00 07/09/21 17:41 Zosyn/Ns 4.5gm/100ml IV 200 mls/hr Q8HR ISIDORO Administration Protocol Potassium Chloride 10 meq/ 1,005 mls @ 125 mls/hr 07/09/21 11:00 07/09/21 10:30 Dextrose/Lactated Ringer's IV 125 mls/hr DIRECT ISIDORO Administration Insulin Human Lispro 0 unit 07/09/21 07:30 07/09/21 13:22 Insulin Lispro 100 Unit/Ml SUB-Q Not Given Q6HR ISIDORO Protocol Ketorolac Tromethamine 15 mg 07/08/21 23:55 07/09/21 17:24 Ketorolac 30 Mg/1 Ml Inj IV 07/10/21 23:59 15 mg Q6HR PRN Administration Colic PAIN Morphine Sulfate 2 mg 07/08/21 13:57 Morphine 2 Mg/1 Ml Inj IV Q4H PRN Pain, Moderate (4-6) Ondansetron HCl 4 mg 07/08/21 13:57 Ondansetron 4 Mg/2 Ml Inj IV Q8H PRN Nausea And Vomiting Ondansetron HCl 4 mg 07/08/21 17:10 Ondansetron 4 Mg/2 Ml Inj IV ONCE PRN Nausea And Vomiting Sodium Chloride 10 ml 07/08/21 22:00 Sodium Chloride 0.9% 10 Ml Flush Syringe IV BID ISIDORO Sodium Chloride 10 ml 07/09/21 09:08 Sodium Chloride 0.9% 50 Ml Ivpb IV PRN PRN FLUSH Nutrition/Malnutrition Assess - Dietary Evaluation Nutrition/Malnutrition Findings: Nutrition Notes Start: 07/09/21 11:50 Freq: Status: Active Protocol: Document 07/09/21 11:50 WANG (Rec: 07/09/21 12:13 WANG [id number]) Nutrition Notes Need for Assessment generated from: Low BMI Initial or Follow up Assessment Current Diagnosis Diabetes,Hypertension Other Pertinent Diagnosis Peritonitis, Pneumoperitoneim, Colon perforation, Hypokalemia, hypomagnesem Current Diet NPO (since 07/08 12:08). Labs/Tests 07/09: Cl 113.6, CO2 19, Glu 109. Pertinent Medications 07/09: KCl 10 mEq in 1005 ml @ 125 ml/hr, others nutritionally unremarkable. 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 Weight Status Underweight Subjective/Other Information RD consult for Low BMI assessment. Pt currently on NPO. Procedure Exploratory laparotomy, irrigation of the peritoneal cavity, suture repair of enterotomy with omental patch. Pt's Low BMI seems to correspond to a natural body composition, and not related to a sudden loss of body weight nor chronic malnutrition, since none were mentioned in the Physical Assessment History or the Progress notes. Percent of energy/protein needs met: Pt currently on NPO. Burn Absent Trauma Absent GI Symptoms Other Food Allergy Yes Skin Integrity/Comment Surgical wound Current % PO Other Minimum of two criteria No Is patient on ventilator? No Is Patient Ambulatory and/or Out of Bed No REE-([facility]-confined to bed) 0884.96 Calculation Used for Recommendations [facility] Additional Notes Protein: 1.5-2 g/Kg; 69-92 g/ day. Fluids: 1 ml/Kcal, or as per MD. Nutrition Intervention Follow-Up By: 07/10/21 Additional Comments When pertinent, monitor food tolerance, %PO intake of meals , and BM.
[2021-07-10] MEDS: HYDROmorphone 1 MG/1 ML INJ IV PRN ×3 (00:50→18:45)
[2021-07-10] MEDS: PIPERACIL/TAZOBACTA 4.5/NS 100 4.5 GM/100 ML VIAL IV SCH ×2 (06:00→15:55)
[2021-07-10] MEDS: INSULIN LISPRO 100 UNIT/ML SUB-Q SCH ×4 (06:00→18:37)
[2021-07-10] MEDS: D5 IV SCH ×2 (06:55→18:46)
[2021-07-10] MEDS: LACTATED RINGERS IV SCH ×2 (06:55→18:46)
[2021-07-10] MEDS: POTASSIUM CHLORIDE IV SCH ×2 (06:55→18:46)
[2021-07-10] MEDS ORDERED: hydrOXYzine PAMOATE 25 MG CAP PO NR (08:00)
[2021-07-10] MEDS: FAMOTIDINE 20 MG/2 ML INJ IV SCH ×3 (10:32→23:22)
[2021-07-10] MEDS: KETOROLAC 30 MG/1 ML INJ IV PRN ×2 (10:38→15:56)
[2021-07-10 10:53] LABS: Basophils % (Auto) 0.2 % (0.0-1.8); Eosinophils # (Auto) 0.5 K/mm3 (0.0-0.4); Eosinophils % (Auto) 5.2 % (0.0-4.3); Lymphocytes # (Auto) 1.5 K/mm3 (1.2-5.4); Lymphocytes % (Auto) 17.1 % (13.4-35.0); Mean Corpuscular HGB Conc 31 % (30-34); Mean Corpuscular Volume 88 fl (79-97); Monocytes # (Auto) 0.3 K/mm3 (0.0-0.8); Monocytes % (Auto) 3.6 % (0.0-7.3); Red Blood Count 3.65 M/mm3 (3.65-5.03); Red Cell Distribution Width 17.1 % (13.2-15.2)
[2021-07-10 11:01] LABS: Platelet Count 86 K/mm3 (140-440)
[2021-07-10 11:03] LABS: Alanine Aminotransferase 15 units/L (7-56); Albumin 2.9 g/dL (3.9-5); Blood Urea Nitrogen 8 mg/dL (7-17); Hemolysis Index 3
[2021-07-10 11:04] LABS: BUN/Creatinine Ratio 16
--- NOTE | 2021-07-10 14:45 | Progress Note ---
Assessment and Plan POD#2 s/p dx lap and patch repair of iatrogenic colon perforation s/p colonoscopy done at OSH. Afebrile and stable with no clinical signs of active leak from perforation. Leukocytosis resolved. Will d/c kramer and start clear liquids. Encouraged ambulation. Subjective Date of service: 07/10/21 Narrative: No acute events overnight. Pt says that her abdominal pain is resolving and she is passing flatus. she denies any nausea or vomiting. Objective Vital Signs - 12hr 07/10/21 04:59 Temperature 98.9 F Pulse Rate 81 Respiratory 20 Rate Blood Pressure 117/75 O2 Sat by Pulse 98 Oximetry - General physical appearance well developed, no distress, no pain - ENT no hearing loss - Respiratory normal expansion, normal respiratory effort - Abdomen soft, not tender, distended, other (KATERINA drain 20cc recorded last 24h, serosanguinous) - Labs 07/10/21 09:52 07/10/21 09:52 Diabetes panel 07/10/21 Range/Units 09:52 Sodium 145 (137-145) mmol/L Potassium 4.3 (3.6-5.0) mmol/L Chloride 116.7 H (98-107) mmol/L Carbon Dioxide 20 L (22-30) mmol/L BUN 8 (7-17) mg/dL Creatinine 0.5 L (0.6-1.2) mg/dL Glucose 118 H (65-100) mg/dL Calcium 8.0 L D (8.4-10.2) mg/dL AST 19 (5-40) units/L ALT 15 (7-56) units/L Alkaline Phosphatase 56 (35-129) units/L Total Protein 5.0 L (6.3-8.2) g/dL Albumin 2.9 L (3.9-5) g/dL Calcium panel 07/10/21 Range/Units 09:52 Calcium 8.0 L D (8.4-10.2) mg/dL Albumin 2.9 L (3.9-5) g/dL Pituitary panel 07/10/21 Range/Units 09:52 Sodium 145 (137-145) mmol/L Potassium 4.3 (3.6-5.0) mmol/L Chloride 116.7 H (98-107) mmol/L Carbon Dioxide 20 L (22-30) mmol/L BUN 8 (7-17) mg/dL Creatinine 0.5 L (0.6-1.2) mg/dL Glucose 118 H (65-100) mg/dL Calcium 8.0 L D (8.4-10.2) mg/dL Adrenal panel 07/10/21 Range/Units 09:52 Sodium 145 (137-145) mmol/L Potassium 4.3 (3.6-5.0) mmol/L Chloride 116.7 H (98-107) mmol/L Carbon Dioxide 20 L (22-30) mmol/L BUN 8 (7-17) mg/dL Creatinine 0.5 L (0.6-1.2) mg/dL Glucose 118 H (65-100) mg/dL Calcium 8.0 L D (8.4-10.2) mg/dL Total Bilirubin 0.40 (0.1-1.2) mg/dL AST 19 (5-40) units/L ALT 15 (7-56) units/L Alkaline Phosphatase 56 (35-129) units/L Total Protein 5.0 L (6.3-8.2) g/dL Albumin 2.9 L (3.9-5) g/dL
--- NOTE | 2021-07-10 18:45 | Progress Note ---
Assessment and Plan Assessment and plan: 60 yo BF with past medical history of HTN, COPD, tobacco smoking alcohol abuse and pancreatitis presents with abdominal pain that she awoke with at am today. Pain started in the LLQ and then spread thruout the abdomin. Patient underwent colonoscopy for CRC screening yesterday at [facility] . Verbal report from MAE Bhat who was present during the procedure is that no tumor or polyps were seen. CT of abdo is with free air in the abdominal cavity. (1) colon perforation, post colonoscopy/iatrogenic Current Visit: Yes Status: Acute Plan to address problem: Some bleeding from perforation noted intraoperatively status post surgical repair with a patch on 07/08 emergently Some fibrinous exudate is noted in the proximal sigmoid colon at its junction with the descending colon with perforation, 4 mm in size. Remains hemodynamically stable postoperatively N.p.o. for postoperative ileus, passing flatus today, improving, To initiate clear liquids today, continue IV fluids for hydration As needed pain medications and antiemetics General surgery following (2) possible peritonitis Current Visit: Yes Status: Acute Plan to address problem: Minimal soiling as per intraoperative report IV Zosyn initiated IV fluids initiated Leukocytosis resolving, remains afebrile and hemodynamically stable (3) Hypokalemia and hypomagnesemia Current Visit: Yes Status: Acute Plan to address problem: Supplemented (4) smoker, appears to have COPD Current Visit: Yes Status: Acute Plan to address problem: Has a smoker's cough No significant wheezing On 2 L of of O2, wean as tolerated (5) Hypertension Current Visit: Yes Status: Chronic Qualifiers: Hypertension type: primary hypertension Qualified Code(s): I10 - Essential (primary) hypertension Plan to address problem: Patient is hypotensive now Hold blood pressure medications (6) T2DM (type 2 diabetes mellitus) Current Visit: Yes Status: Chronic Qualifiers: Diabetes mellitus gore seamer insulin use: unspecified gore seamer insulin use status Plan to address problem: Coverage for now (7) DVT prophylaxis Current Visit: Yes Status: Acute Plan to address problem: On SCDs and GI prophylaxis (8) Advance care planning Current Visit: Yes Status: Acute Plan to address problem: Disease education conducted, care plan discussed, diagnosis discussed, prognosis discussed. Patient is full code. Patient on acknowledges understanding and agreement with care plan. +30 minutes. History Interval history: Patient reports passing flatus rectally but no BMs today. Has nausea. Has some cough. On 2 L of O2. Smoker. No chest pains. Remains afebrile. Hemodynamically stable. Only small serosanguineous fluid in drain bulb. Hospitalist Physical - Constitutional Vitals: Temp Pulse Resp BP Pulse Ox 98.4 F 58 L 18 123/64 100 07/10/21 12:08 07/10/21 12:08 07/10/21 12:08 07/10/21 12:08 07/10/21 12:08 General appearance: Present: no acute distress, mild distress, well-nourished - EENT Eyes: Present: PERRL, EOM intact ENT: clear oral mucosa - Neck Neck: Present: supple - Respiratory Respiratory effort: normal Respiratory: bilateral: diminished - Cardiovascular Rhythm: regular - Extremities Extremities: No edema - Abdominal General gastrointestinal: soft, distended, hypoactive bowel sounds, other (Has tenderness consistent with postoperative state.) - Integumentary Integumentary: Absent: rash - Psychiatric Psychiatric: appropriate mood/affect - Neurologic Neurologic: no focal deficits, moves all extremities Results - Labs CBC & Chem 7: 07/11/21 05:37 07/11/21 05:37 Labs: Laboratory Last Values WBC 8.9 K/mm3 (4.5-11.0) 07/10/21 09:52 RBC 3.65 M/mm3 (3.65-5.03) 07/10/21 09:52 Hgb 10.0 gm/dl (10.1-14.3) L 07/10/21 09:52 Hct 32.0 % (30.3-42.9) 07/10/21 09:52 MCV 88 fl (79-97) 07/10/21 09:52 MCH 27 pg (28-32) L 07/10/21 09:52 MCHC 31 % (30-34) 07/10/21 09:52 RDW 17.1 % (13.2-15.2) H 07/10/21 09:52 Plt Count 86 K/mm3 (140-440) L 07/10/21 09:52 Lymph % (Auto) 17.1 % (13.4-35.0) 07/10/21 09:52 [place] % (Auto) 3.6 % (0.0-7.3) 07/10/21 09:52 Eos % (Auto) 5.2 % (0.0-4.3) H 07/10/21 09:52 Baso % (Auto) 0.2 % (0.0-1.8) 07/10/21 09:52 Lymph # (Auto) 1.5 K/mm3 (1.2-5.4) 07/10/21 09:52 [place] # (Auto) 0.3 K/mm3 (0.0-0.8) 07/10/21 09:52 Eos # (Auto) 0.5 K/mm3 (0.0-0.4) H 07/10/21 09:52 Baso # (Auto) 0.0 K/mm3 (0.0-0.1) 07/10/21 09:52 Seg Neutrophils % 73.9 % (40.0-70.0) H 07/10/21 09:52 Seg Neutrophils # 6.6 K/mm3 (1.8-7.7) 07/10/21 09:52 PT 13.7 Sec. (12.2-14.9) 07/08/21 09:29 INR 0.95 (0.87-1.13) 07/08/21 09:29 Sodium 145 mmol/L (137-145) 07/10/21 09:52 Potassium 4.3 mmol/L (3.6-5.0) 07/10/21 09:52 Chloride 116.7 mmol/L (98-107) H 07/10/21 09:52 Carbon Dioxide 20 mmol/L (22-30) L 07/10/21 09:52 Anion Gap 13 mmol/L 07/10/21 09:52 BUN 8 mg/dL (7-17) 07/10/21 09:52 Creatinine 0.5 mg/dL (0.6-1.2) L 07/10/21 09:52 Estimated GFR > 60 ml/min 07/10/21 09:52 BUN/Creatinine Ratio 16 % 07/10/21 09:52 Glucose 118 mg/dL (65-100) H 07/10/21 09:52 POC Glucose 74 mg/dL (70-105) 07/10/21 16:13 Lactic Acid 1.90 mmol/L (0.7-2.0) 07/08/21 09:29 Calcium 8.0 mg/dL (8.4-10.2) L D 07/10/21 09:52 Magnesium 1.50 mg/dL (1.7-2.3) L 07/08/21 09:29 Total Bilirubin 0.40 mg/dL (0.1-1.2) 07/10/21 09:52 Direct Bilirubin < 0.2 mg/dL (0-0.2) 07/08/21 09:29 Indirect Bilirubin 0.1 mg/dL 07/08/21 09:29 AST 19 units/L (5-40) 07/10/21 09:52 ALT 15 units/L (7-56) 07/10/21 09:52 Alkaline Phosphatase 56 units/L (35-129) 07/10/21 09:52 Total Creatine Kinase 71 units/L (30-135) 07/08/21 09:29 Total Protein 5.0 g/dL (6.3-8.2) L 07/10/21 09:52 Albumin 2.9 g/dL (3.9-5) L 07/10/21 09:52 Albumin/Globulin Ratio 1.4 % 07/10/21 09:52 Lipase 21 units/L (13-60) 07/08/21 09:29 Blood Type B POSITIVE 07/08/21 12:44 Antibody Screen Negative 07/08/21 12:44 Crossmatch See Detail 07/08/21 12:44 Microbiology: Microbiology 07/08/21 12:33 Peripheral/Venous Blood Culture - Preliminary NO GROWTH AFTER 48 HOURS 07/08/21 12:33 Peripheral/Venous Blood Culture - Preliminary NO GROWTH AFTER 48 HOURS Evans/IV: Voiding Method Indwelling Catheter Active Medications - Current Medications Current Medications: Generic Name Dose Route Start Last Admin Trade Name Freq PRN Reason Stop Dose Admin Acetaminophen 650 mg 07/08/21 13:57 Acetaminophen 325 Mg Tab PO Q4H PRN Pain MILD(1-3)/Fever >100.5/LOTT Famotidine 20 mg 07/08/21 14:00 07/10/21 12:52 Famotidine 20 Mg/2 Ml Inj IV 20 mg BID ISIDORO Administration Hydromorphone HCl 0.5 mg 07/08/21 13:57 07/10/21 05:30 Hydromorphone 1 Mg/1 Ml Inj IV 0.5 mg Q3H PRN Administration Pain , Severe (7-10) Piperacillin Sod/Tazobactam Sod 4.5 gm in 100 mls @ 200 mls/hr 07/08/21 14:00 07/10/21 15:55 Zosyn/Ns 4.5gm/100ml IV 200 mls/hr Q8HR ISIDORO Administration Protocol Potassium Chloride 10 meq/ 1,005 mls @ 125 mls/hr 07/09/21 11:00 07/10/21 06:55 Dextrose/Lactated Ringer's IV 125 mls/hr DIRECT ISIDORO Administration Insulin Human Lispro 0 unit 07/09/21 07:30 07/10/21 18:37 Insulin Lispro 100 Unit/Ml SUB-Q Not Given Q6HR [facility] Protocol Ketorolac Tromethamine 15 mg 07/08/21 23:55 07/10/21 15:56 Ketorolac 30 Mg/1 Ml Inj IV 07/10/21 23:59 15 mg Q6HR PRN Administration Colic PAIN Morphine Sulfate 2 mg 07/08/21 13:57 Morphine 2 Mg/1 Ml Inj IV Q4H PRN Pain, Moderate (4-6) Ondansetron HCl 4 mg 07/08/21 13:57 Ondansetron 4 Mg/2 Ml Inj IV Q8H PRN Nausea And Vomiting Ondansetron HCl 4 mg 07/08/21 17:10 Ondansetron 4 Mg/2 Ml Inj IV ONCE PRN Nausea And Vomiting Sodium Chloride 10 ml 07/08/21 22:00 07/10/21 12:53 Sodium Chloride 0.9% 10 Ml Flush Syringe IV 10 ml BID ISIDORO Administration Sodium Chloride 10 ml 07/09/21 09:08 Sodium Chloride 0.9% 50 Ml Ivpb IV PRN PRN FLUSH Nutrition/Malnutrition Assess - Dietary Evaluation Nutrition/Malnutrition Findings: Nutrition Notes Start: 07/09/21 11:50 Freq: Status: Active Protocol: Document 07/10/21 12:00 WANG (Rec: 07/10/21 12:10 WANG [id number]) Nutrition Notes Initial or Follow up Brief Note Current Diet NPO (since 07/08 12:08). Height 5 ft 6 in Weight 45.8 kg [place] Body Weight (kg) 59.09 BMI 16.2 Weight change and time frame 0.013 Kg body weight change reported. Weight Status Underweight Subjective/Other Information RD consult for routine F/U on Dietary Advancement. Pt continues on NPO. No further information on chart at the time. Percent of energy/protein needs met: Pt currently on NPO. Nutrition Intervention Follow-Up By: 07/13/21 Additional Comments When pertinent, monitor food tolerance, %PO intake of meals , and BM.
[2021-07-11] MEDS: INSULIN LISPRO 100 UNIT/ML SUB-Q SCH ×5 (00:15→18:52)
[2021-07-11] MEDS: HYDROmorphone 1 MG/1 ML INJ IV PRN ×4 (03:03→19:31)
[2021-07-11] MEDS: POTASSIUM CHLORIDE IV SCH ×2 (04:11→15:00)
[2021-07-11] MEDS: LACTATED RINGERS IV SCH ×2 (04:11→15:00)
[2021-07-11] MEDS: D5 IV SCH ×2 (04:11→15:00)
[2021-07-11] MEDS ORDERED: diphenhydrAMINE 50 MG/ML VIAL IV ONE (04:20)
[2021-07-11 06:00] LABS: Basophils % (Auto) 0.3 % (0.0-1.8); Eosinophils # (Auto) 0.3 K/mm3 (0.0-0.4); Eosinophils % (Auto) 4.1 % (0.0-4.3); Hematocrit 32.3 % (30.3-42.9); Hemoglobin 10.1 gm/dl (10.1-14.3); Lymphocytes # (Auto) 1.3 K/mm3 (1.2-5.4); Lymphocytes % (Auto) 21.5 % (13.4-35.0); Mean Corpuscular HGB Conc 31 % (30-34); Mean Corpuscular Volume 88 fl (79-97); Monocytes # (Auto) 0.2 K/mm3 (0.0-0.8); Monocytes % (Auto) 3.6 % (0.0-7.3); Platelet Count 104 K/mm3 (140-440); Red Blood Count 3.67 M/mm3 (3.65-5.03); Red Cell Distribution Width 16.7 % (13.2-15.2)
[2021-07-11 06:21] LABS: Alanine Aminotransferase 12 units/L (7-56); Albumin 2.7 g/dL (3.9-5); Blood Urea Nitrogen 5 mg/dL (7-17); Hemolysis Index 2
[2021-07-11 06:25] LABS: BUN/Creatinine Ratio 8
[2021-07-11] MEDS: PIPERACIL/TAZOBACTA 4.5/NS 100 4.5 GM/100 ML VIAL IV SCH ×5 (08:51→22:46)
[2021-07-11] MEDS: FAMOTIDINE 20 MG/2 ML INJ IV SCH ×2 (10:06→22:46)
--- NOTE | 2021-07-11 14:06 | Progress Note ---
Assessment and Plan 60-year-old female status post dx lap and patch repair of iatrogenic colon perforation s/p colonoscopy done at OSH, POD 3 Plan: 1. pain regimen modified - added percocet PO and toradol IV q8 2. encouraged OOB/ambulation 3. simethicone prn 4. KATERINA drain to bulb suction -record output 5. CLD today, adv to FLD in am 6. DVT and GI ppx 7. IS/pulm toilet 8. ice to incisions 9. continue abx Thank you, please call with questions or concerns. Evaluation and treatment of this patient was during the time of the national and state emergency arising from COVID19 coronavirus pandemic. Treatment and procedures performed meet the current and available best practice and guidelines for patient during the COVID pandemic. Subjective Date of service: 07/11/21 Narrative: Patient seen and examined. Complains of drainage from around the KATERINA site causing her bedsheets to get wet. She has not been out of bed but shifting from side to side. Positive flatus but no BM. Tolerating clear liquids. No nausea or vomiting. Afebrile. Objective Vital Signs - 12hr 07/11/21 07/11/21 04:46 12:41 Temperature 98.1 F Pulse Rate 74 Respiratory 20 Rate Blood Pressure 156/79 O2 Sat by Pulse 97 98 Oximetry - General physical appearance Narrative Exam: Gen.: Awake, alert, oriented x3. No apparent distress ENT: Trachea midline. No lymphadenopathy. No scleral icterus or conjunctival pallor CV: S1, S2 present Respiratory: No audible wheezes Abdomen: Soft, nondistended, mild tenderness near incisions. KATERINA site with serous drainage on dressing and minimal serous drainage in bulb. New dressing applied. Incisions are clean, dry, intact. No rebound, rigidity, guarding Extremities: No clubbing, cyanosis, edema - Labs 07/11/21 05:37 07/11/21 05:37 Diabetes panel 07/11/21 Range/Units 05:37 Sodium 140 (137-145) mmol/L Potassium 3.5 L (3.6-5.0) mmol/L Chloride 112.7 H (98-107) mmol/L Carbon Dioxide 21 L (22-30) mmol/L BUN 5 L (7-17) mg/dL Creatinine 0.6 (0.6-1.2) mg/dL Glucose 117 H (65-100) mg/dL Calcium 8.0 L (8.4-10.2) mg/dL AST 13 (5-40) units/L ALT 12 (7-56) units/L Alkaline Phosphatase 52 (35-129) units/L Total Protein 5.1 L (6.3-8.2) g/dL Albumin 2.7 L (3.9-5) g/dL Calcium panel 07/11/21 Range/Units 05:37 Calcium 8.0 L (8.4-10.2) mg/dL Albumin 2.7 L (3.9-5) g/dL Pituitary panel 07/11/21 Range/Units 05:37 Sodium 140 (137-145) mmol/L Potassium 3.5 L (3.6-5.0) mmol/L Chloride 112.7 H (98-107) mmol/L Carbon Dioxide 21 L (22-30) mmol/L BUN 5 L (7-17) mg/dL Creatinine 0.6 (0.6-1.2) mg/dL Glucose 117 H (65-100) mg/dL Calcium 8.0 L (8.4-10.2) mg/dL Adrenal panel 07/11/21 Range/Units 05:37 Sodium 140 (137-145) mmol/L Potassium 3.5 L (3.6-5.0) mmol/L Chloride 112.7 H (98-107) mmol/L Carbon Dioxide 21 L (22-30) mmol/L BUN 5 L (7-17) mg/dL Creatinine 0.6 (0.6-1.2) mg/dL Glucose 117 H (65-100) mg/dL Calcium 8.0 L (8.4-10.2) mg/dL Total Bilirubin 0.40 (0.1-1.2) mg/dL AST 13 (5-40) units/L ALT 12 (7-56) units/L Alkaline Phosphatase 52 (35-129) units/L Total Protein 5.1 L (6.3-8.2) g/dL Albumin 2.7 L (3.9-5) g/dL
[2021-07-11] MEDS: KETOROLAC 30 MG/1 ML INJ IV SCH ×2 (14:36→22:54)
--- NOTE | 2021-07-11 20:09 | Progress Note ---
Assessment and Plan Assessment and plan: 60 yo BF with past medical history of HTN, COPD, tobacco smoking alcohol abuse and pancreatitis presents with abdominal pain that she awoke with at am today. Pain started in the LLQ and then spread thruout the abdomin. Patient underwent colonoscopy for CRC screening yesterday at [facility] . Verbal report from MAE Bhat who was present during the procedure is that no tumor or polyps were seen. CT of abdo is with free air in the abdominal cavity. (1) colon perforation, post colonoscopy/iatrogenic Current Visit: Yes Status: Acute Plan to address problem: Some bleeding from perforation noted intraoperatively status post surgical repair with a patch on 07/08 emergently Some fibrinous exudate is noted in the proximal sigmoid colon at its junction with the descending colon with perforation, 4 mm in size. Remains hemodynamically stable postoperatively On clear liquid diets, has BMs today, diet to be advanced to full liquid diet continue IV fluids for hydration As needed pain medications and antiemetics General surgery following (2) possible peritonitis Current Visit: Yes Status: Acute Plan to address problem: Minimal soiling as per intraoperative report IV Zosyn initiated IV fluids initiated Leukocytosis resolving, remains afebrile and hemodynamically stable (3) Hypokalemia and hypomagnesemia Current Visit: Yes Status: Acute Plan to address problem: Supplemented (4) smoker, appears to have COPD Current Visit: Yes Status: Acute Plan to address problem: Has a smoker's cough No significant wheezing On 2 L of of O2, wean as tolerated (5) Hypertension Current Visit: Yes Status: Chronic Qualifiers: Hypertension type: primary hypertension Qualified Code(s): I10 - Essential (primary) hypertension Plan to address problem: Patient is hypotensive now Hold blood pressure medications (6) T2DM (type 2 diabetes mellitus) Current Visit: Yes Status: Chronic Qualifiers: Diabetes mellitus senior living 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 Patient is full code. Patient on acknowledges understanding and agreement with care plan. +30 minutes. History Interval history: Patient reports having some bowel movements today. Clear liquids to be advanced to full liquid diet today. Remains afebrile and hemodynamic stable. Has some cough/smoker. Continue supportive. Denies chest pains. Nausea is controlled. Wants to get out of the bed and walk around. Mentating well. Hospitalist Physical - Constitutional Vitals: Temp Pulse Resp BP Pulse Ox 98.4 F 69 18 144/80 99 07/11/21 17:32 07/11/21 17:32 07/11/21 17:32 07/11/21 17:32 07/11/21 17:32 General appearance: Present: no acute distress, well-nourished - EENT Eyes: Present: PERRL, EOM intact ENT: clear oral mucosa - Neck Neck: Present: supple - Respiratory Respiratory effort: normal Respiratory: bilateral: diminished - Cardiovascular Rhythm: regular - Extremities Extremities: No edema - Abdominal General gastrointestinal: soft, non-distended, other (Tenderness consistent with postoperative state, improving) Results - Labs CBC & Chem 7: 07/11/21 05:37 07/11/21 05:37 Labs: Laboratory Last Values WBC 6.1 K/mm3 (4.5-11.0) 07/11/21 05:37 RBC 3.67 M/mm3 (3.65-5.03) 07/11/21 05:37 Hgb 10.1 gm/dl (10.1-14.3) 07/11/21 05:37 Hct 32.3 % (30.3-42.9) 07/11/21 05:37 MCV 88 fl (79-97) 07/11/21 05:37 MCH 28 pg (28-32) 07/11/21 05:37 MCHC 31 % (30-34) 07/11/21 05:37 RDW 16.7 % (13.2-15.2) H 07/11/21 05:37 Plt Count 104 K/mm3 (140-440) L 07/11/21 05:37 Lymph % (Auto) 21.5 % (13.4-35.0) 07/11/21 05:37 [place] % (Auto) 3.6 % (0.0-7.3) 07/11/21 05:37 Eos % (Auto) 4.1 % (0.0-4.3) 07/11/21 05:37 Baso % (Auto) 0.3 % (0.0-1.8) 07/11/21 05:37 Lymph # (Auto) 1.3 K/mm3 (1.2-5.4) 07/11/21 05:37 [place] # (Auto) 0.2 K/mm3 (0.0-0.8) 07/11/21 05:37 Eos # (Auto) 0.3 K/mm3 (0.0-0.4) 07/11/21 05:37 Baso # (Auto) 0.0 K/mm3 (0.0-0.1) 07/11/21 05:37 Seg Neutrophils % 70.5 % (40.0-70.0) H 07/11/21 05:37 Seg Neutrophils # 4.3 K/mm3 (1.8-7.7) 07/11/21 05:37 PT 13.7 Sec. (12.2-14.9) 07/08/21 09:29 INR 0.95 (0.87-1.13) 07/08/21 09:29 Sodium 140 mmol/L (137-145) 07/11/21 05:37 Potassium 3.5 mmol/L (3.6-5.0) L 07/11/21 05:37 Chloride 112.7 mmol/L (98-107) H 07/11/21 05:37 Carbon Dioxide 21 mmol/L (22-30) L 07/11/21 05:37 Anion Gap 10 mmol/L 07/11/21 05:37 BUN 5 mg/dL (7-17) L 07/11/21 05:37 Creatinine 0.6 mg/dL (0.6-1.2) 07/11/21 05:37 Estimated GFR > 60 ml/min 07/11/21 05:37 BUN/Creatinine Ratio 8 % 07/11/21 05:37 Glucose 117 mg/dL (65-100) H 07/11/21 05:37 POC Glucose 92 mg/dL (70-105) 07/11/21 17:33 Lactic Acid 1.90 mmol/L (0.7-2.0) 07/08/21 09:29 Calcium 8.0 mg/dL (8.4-10.2) L 07/11/21 05:37 Magnesium 1.50 mg/dL (1.7-2.3) L 07/08/21 09:29 Total Bilirubin 0.40 mg/dL (0.1-1.2) 07/11/21 05:37 Direct Bilirubin < 0.2 mg/dL (0-0.2) 07/08/21 09:29 Indirect Bilirubin 0.1 mg/dL 07/08/21 09:29 AST 13 units/L (5-40) 07/11/21 05:37 ALT 12 units/L (7-56) 07/11/21 05:37 Alkaline Phosphatase 52 units/L (35-129) 07/11/21 05:37 Total Creatine Kinase 71 units/L (30-135) 07/08/21 09:29 Total Protein 5.1 g/dL (6.3-8.2) L 07/11/21 05:37 Albumin 2.7 g/dL (3.9-5) L 07/11/21 05:37 Albumin/Globulin Ratio 1.1 % 07/11/21 05:37 Lipase 21 units/L (13-60) 07/08/21 09:29 Blood Type B POSITIVE 07/08/21 12:44 Antibody Screen Negative 07/08/21 12:44 Crossmatch See Detail 07/08/21 12:44 Microbiology: Microbiology 07/08/21 12:33 Peripheral/Venous Blood Culture - Preliminary NO GROWTH AFTER 72 HOURS 07/08/21 12:33 Peripheral/Venous Blood Culture - Preliminary NO GROWTH AFTER 72 HOURS Evans/IV: Voiding Method Toilet Active Medications - Current Medications Current Medications: Generic Name Dose Route Start Last Admin Trade Name Freq PRN Reason Stop Dose Admin Acetaminophen 650 mg 07/08/21 13:57 Acetaminophen 325 Mg Tab PO Q4H PRN Pain MILD(1-3)/Fever >100.5/LOTT Famotidine 20 mg 07/08/21 14:00 07/11/21 10:06 Famotidine 20 Mg/2 Ml Inj IV 20 mg BID ISIDORO Administration Hydromorphone HCl 1 mg 07/11/21 12:45 07/11/21 19:31 Hydromorphone 1 Mg/1 Ml Inj IV 1 mg Q4H PRN Administration Pain , Severe (7-10) Piperacillin Sod/Tazobactam Sod 4.5 gm in 100 mls @ 200 mls/hr 07/08/21 14:00 07/11/21 14:36 Zosyn/Ns 4.5gm/100ml IV 200 mls/hr Q8HR ISIDORO Administration Protocol Potassium Chloride 20 meq/ 1,010 mls @ 125 mls/hr 07/11/21 20:08 Dextrose/Lactated Ringer's IV DIRECT ISIDORO Insulin Human Lispro 0 unit 07/09/21 07:30 07/11/21 18:52 Insulin Lispro 100 Unit/Ml SUB-Q Not Given Q6HR [facility] Protocol Ketorolac Tromethamine 30 mg 07/11/21 14:00 07/11/21 14:36 Ketorolac 30 Mg/1 Ml Inj IV 07/16/21 13:59 30 mg Q8H ISIDORO Administration Ondansetron HCl 4 mg 07/08/21 13:57 Ondansetron 4 Mg/2 Ml Inj IV Q8H PRN Nausea And Vomiting Ondansetron HCl 4 mg 07/08/21 17:10 Ondansetron 4 Mg/2 Ml Inj IV ONCE PRN Nausea And Vomiting Oxycodone/Acetaminophen 1 tab 07/11/21 12:44 Oxycodone /Acetaminophen 5-325mg Tab PO Q6H PRN Pain, Moderate (4-6) Potassium Bicarbonate 25 meq 07/11/21 21:00 K-Lyte 25 Meq Tablet Eff PO 07/11/21 21:01 ONCE ONE Simethicone 80 mg 07/11/21 13:30 Simethicone 80 Mg Chew Tab PO Q6H PRN Gas pain Sodium Chloride 10 ml 07/08/21 22:00 07/11/21 10:07 Sodium Chloride 0.9% 10 Ml Flush Syringe IV 10 ml BID ISIDORO Administration Sodium Chloride 10 ml 07/09/21 09:08 Sodium Chloride 0.9% 50 Ml Ivpb IV PRN PRN FLUSH Nutrition/Malnutrition Assess - Dietary Evaluation Nutrition/Malnutrition Findings: Nutrition Notes Start: 07/09/21 11:50 Freq: Status: Active Protocol: Document 07/10/21 12:00 WANG (Rec: 07/10/21 12:10 WANG [id number]) Nutrition Notes Initial or Follow up Brief Note Current Diet NPO (since 07/08 12:08). Height 5 ft 6 in Weight 45.8 kg [place] Body Weight (kg) 59.09 BMI 16.2 Weight change and time frame 0.013 Kg body weight change reported. Weight Status Underweight Subjective/Other Information RD consult for routine F/U on Dietary Advancement. Pt continues on NPO. No further information on chart at the time. Percent of energy/protein needs met: Pt currently on NPO. Nutrition Intervention Follow-Up By: 07/13/21 Additional Comments When pertinent, monitor food tolerance, %PO intake of meals , and BM.
[2021-07-11] MEDS ORDERED: K-LYTE 25 MEQ TABLET EFF PO ONE (21:00)
[2021-07-11] MEDS: POTASSIUM CHLORIDE 20 MEQ in D5W/LACTATED RINGERS 1,000 ML IV SCH (22:50)
[2021-07-11] MEDS: oxyCODONE /ACETAMINOPHEN 5-325MG TAB PO PRN (22:56)
[2021-07-12] MEDS: HYDROmorphone 1 MG/1 ML INJ IV PRN ×3 (04:04→17:55)
[2021-07-12] MEDS: INSULIN LISPRO 100 UNIT/ML SUB-Q SCH ×3 (05:23→17:58)
[2021-07-12] MEDS: KETOROLAC 30 MG/1 ML INJ IV SCH ×3 (05:24→21:40)
[2021-07-12 07:56] LABS: Alanine Aminotransferase 10 units/L (7-56); Albumin 2.9 g/dL (3.9-5); Blood Urea Nitrogen 2 mg/dL (7-17); Calcium 8.6 mg/dL (8.4-10.2); Hemolysis Index 3
[2021-07-12 07:57] LABS: BUN/Creatinine Ratio 4
[2021-07-12 08:22] LABS: Basophils % (Auto) 0.2 % (0.0-1.8); Eosinophils # (Auto) 0.3 K/mm3 (0.0-0.4); Eosinophils % (Auto) 3.1 % (0.0-4.3); Hematocrit 33.1 % (30.3-42.9); Hemoglobin 10.6 gm/dl (10.1-14.3); Lymphocytes # (Auto) 1.7 K/mm3 (1.2-5.4); Lymphocytes % (Auto) 16.5 % (13.4-35.0); Mean Corpuscular HGB Conc 32 % (30-34); Mean Corpuscular Volume 86 fl (79-97); Monocytes # (Auto) 0.3 K/mm3 (0.0-0.8); Monocytes % (Auto) 3.2 % (0.0-7.3); Platelet Count 134 K/mm3 (140-440); Red Blood Count 3.84 M/mm3 (3.65-5.03); Red Cell Distribution Width 16.4 % (13.2-15.2)
[2021-07-12] MEDS: oxyCODONE /ACETAMINOPHEN 5-325MG TAB PO PRN (08:34)
[2021-07-12] MEDS: PIPERACIL/TAZOBACTA 4.5/NS 100 4.5 GM/100 ML VIAL IV SCH ×3 (08:34→21:39)
[2021-07-12] MEDS: SIMETHICONE 80 MG CHEW TAB PO PRN ×2 (08:35→17:55)
--- NOTE | 2021-07-12 10:45 | Progress Note ---
Assessment and Plan 60-year-old female status post dx lap and patch repair of iatrogenic colon perforation s/p colonoscopy done at OSH, POD 4 Plan: 1. continue pain regimen 2. OOB/ambulation 3. simethicone prn 4. KATERINA drain to bulb suction -record output 5. adv to soft diet for dinner 6. DVT and GI ppx 7. IS/pulm toilet 8. ice to incisions 9. continue abx Possible dc planning 24 hours if continues to improve. Thank you, please call with questions or concerns. Evaluation and treatment of this patient was during the time of the national and state emergency arising from COVID19 coronavirus pandemic. Treatment and procedures performed meet the current and available best practice and guidelines for patient during the COVID pandemic. Subjective Date of service: 07/12/21 Narrative: Patient seen and examined. Feels much better today. Pain is much better contr olled. States she is having flatus but no bowel movement yet. No nausea or vomiting. Continues to tolerate liquids. Afebrile. Objective Vital Signs - 12hr 07/12/21 01:08 O2 Sat by Pulse 98 Oximetry - General physical appearance Narrative Exam: Gen.: Awake, alert, oriented x3. No apparent distress ENT: Trachea midline. No lymphadenopathy. No scleral icterus or conjunctival pallor CV: S1, S2 present Respiratory: No audible wheezes Abdomen: Soft, nondistended, nontender. Incisions clean, dry, intact. KATERINA drain serous. No rebound, rigidity, guarding Extremities: No clubbing, cyanosis, edema - Labs 07/12/21 06:38 07/12/21 06:38 Diabetes panel 07/12/21 Range/Units 06:38 Sodium 138 (137-145) mmol/L Potassium 3.2 L (3.6-5.0) mmol/L Chloride 102.2 (98-107) mmol/L Carbon Dioxide 24 (22-30) mmol/L BUN 2 L (7-17) mg/dL Creatinine 0.5 L (0.6-1.2) mg/dL Glucose 159 H (65-100) mg/dL Calcium 8.6 (8.4-10.2) mg/dL AST 15 (5-40) units/L ALT 10 (7-56) units/L Alkaline Phosphatase 61 (35-129) units/L Total Protein 5.8 L (6.3-8.2) g/dL Albumin 2.9 L (3.9-5) g/dL Calcium panel 07/12/21 Range/Units 06:38 Calcium 8.6 (8.4-10.2) mg/dL Albumin 2.9 L (3.9-5) g/dL Pituitary panel 07/12/21 Range/Units 06:38 Sodium 138 (137-145) mmol/L Potassium 3.2 L (3.6-5.0) mmol/L Chloride 102.2 (98-107) mmol/L Carbon Dioxide 24 (22-30) mmol/L BUN 2 L (7-17) mg/dL Creatinine 0.5 L (0.6-1.2) mg/dL Glucose 159 H (65-100) mg/dL Calcium 8.6 (8.4-10.2) mg/dL Adrenal panel 07/12/21 Range/Units 06:38 Sodium 138 (137-145) mmol/L Potassium 3.2 L (3.6-5.0) mmol/L Chloride 102.2 (98-107) mmol/L Carbon Dioxide 24 (22-30) mmol/L BUN 2 L (7-17) mg/dL Creatinine 0.5 L (0.6-1.2) mg/dL Glucose 159 H (65-100) mg/dL Calcium 8.6 (8.4-10.2) mg/dL Total Bilirubin 0.80 (0.1-1.2) mg/dL AST 15 (5-40) units/L ALT 10 (7-56) units/L Alkaline Phosphatase 61 (35-129) units/L Total Protein 5.8 L (6.3-8.2) g/dL Albumin 2.9 L (3.9-5) g/dL
[2021-07-12] MEDS ORDERED: MAGNESIUM SULFATE 1 GM in SODIUM CHLORIDE 0.9% 50 ML IV ONE (11:00)
[2021-07-12] MEDS ORDERED: POTASSIUM CHLORIDE ER 20 MEQ TAB PO ONE (11:00)
[2021-07-12] MEDS: FAMOTIDINE 20 MG/2 ML INJ IV SCH ×2 (11:18→21:41)
[2021-07-12] MEDS ORDERED: MAGNESIUM SULFATE 4 GM/100 ML BAG IV ONE (12:27)
[2021-07-12] MEDS ORDERED: MAGNESIUM SULFATE 3 GM in SODIUM CHLORIDE 0.9% 100 ML IV ONE (12:38)
--- NOTE | 2021-07-12 17:12 | Progress Note ---
Assessment and Plan Assessment and plan: 60 yo BF with past medical history of HTN, COPD, tobacco smoking alcohol abuse and pancreatitis presents with abdominal pain that she awoke with at am today. Pain started in the LLQ and then spread thruout the abdomin. Patient underwent colonoscopy for CRC screening yesterday at [facility] . Verbal report from MAE Bhat who was present during the procedure is that no tumor or polyps were seen. CT of abdo is with free air in the abdominal cavity. (1) colon perforation, post colonoscopy/iatrogenic Current Visit: Yes Status: Acute Plan to address problem: Some bleeding from perforation noted intraoperatively status post surgical repair with a patch on 07/08 emergently Some fibrinous exudate is noted in the proximal sigmoid colon at its junction with the descending colon with perforation, 4 mm in size. Remains hemodynamically stable postoperatively On full liquid diets, has BMs today, diet to be advanced to regular diet continue IV fluids for hydration As needed pain medications and antiemetics General surgery following (2) possible peritonitis Current Visit: Yes Status: Acute Plan to address problem: Minimal soiling as per intraoperative report IV Zosyn initiated IV fluids initiated Leukocytosis resolving, remains afebrile and hemodynamically stable (3) Hypokalemia and hypomagnesemia Current Visit: Yes Status: Acute Plan to address problem: Replenishing intravenously (4) smoker, appears to have COPD Current Visit: Yes Status: Acute Plan to address problem: Has a smoker's cough No significant wheezing On 2 L of of O2, wean as tolerated (5) Hypertension Current Visit: Yes Status: Chronic Qualifiers: Hypertension type: primary hypertension Qualified Code(s): I10 - Essential (primary) hypertension Plan to address problem: Patient is hypotensive now Hold blood pressure medications (6) T2DM (type 2 diabetes mellitus) Current Visit: Yes Status: Chronic Qualifiers: 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 Patient is full code. Patient on acknowledges understanding and agreement with care plan. +30 minutes. Discussed with the patient and the nursing staff History Interval history: Had BM today. Passing flatus. Started on today. Abdominal pain better. Minimal output from the drain. Remains hypokalemic with hypomagnesemia. Hospitalist Physical - Constitutional Vitals: Temp Pulse Resp BP Pulse Ox 97.7 F 73 20 149/83 96 07/12/21 13:08 07/12/21 13:08 07/12/21 13:08 07/12/21 13:08 07/12/21 13:08 General appearance: Present: no acute distress, well-nourished - EENT Eyes: Present: PERRL, EOM intact ENT: clear oral mucosa - Neck Neck: Present: supple - Respiratory Respiratory effort: normal Respiratory: bilateral: diminished - Cardiovascular Rhythm: regular - Extremities Extremities: No edema - Abdominal General gastrointestinal: soft, non-distended, normal bowel sounds, other (P ostop tenderness improving) - Psychiatric Psychiatric: appropriate mood/affect - Neurologic Neurologic: no focal deficits, moves all extremities Results - Labs CBC & Chem 7: 07/12/21 06:38 07/12/21 06:38 Labs: Laboratory Last Values WBC 10.3 K/mm3 (4.5-11.0) 07/12/21 06:38 RBC 3.84 M/mm3 (3.65-5.03) 07/12/21 06:38 Hgb 10.6 gm/dl (10.1-14.3) 07/12/21 06:38 Hct 33.1 % (30.3-42.9) 07/12/21 06:38 MCV 86 fl (79-97) 07/12/21 06:38 MCH 28 pg (28-32) 07/12/21 06:38 MCHC 32 % (30-34) 07/12/21 06:38 RDW 16.4 % (13.2-15.2) H 07/12/21 06:38 Plt Count 134 K/mm3 (140-440) L 07/12/21 06:38 Lymph % (Auto) 16.5 % (13.4-35.0) 07/12/21 06:38 [place] % (Auto) 3.2 % (0.0-7.3) 07/12/21 06:38 Eos % (Auto) 3.1 % (0.0-4.3) 07/12/21 06:38 Baso % (Auto) 0.2 % (0.0-1.8) 07/12/21 06:38 Lymph # (Auto) 1.7 K/mm3 (1.2-5.4) 07/12/21 06:38 [place] # (Auto) 0.3 K/mm3 (0.0-0.8) 07/12/21 06:38 Eos # (Auto) 0.3 K/mm3 (0.0-0.4) 07/12/21 06:38 Baso # (Auto) 0.0 K/mm3 (0.0-0.1) 07/12/21 06:38 Seg Neutrophils % 77.0 % (40.0-70.0) H 07/12/21 06:38 Seg Neutrophils # 7.9 K/mm3 (1.8-7.7) H 07/12/21 06:38 PT 13.7 Sec. (12.2-14.9) 07/08/21 09:29 INR 0.95 (0.87-1.13) 07/08/21 09:29 Sodium 138 mmol/L (137-145) 07/12/21 06:38 Potassium 3.2 mmol/L (3.6-5.0) L 07/12/21 06:38 Chloride 102.2 mmol/L (98-107) 07/12/21 06:38 Carbon Dioxide 24 mmol/L (22-30) 07/12/21 06:38 Anion Gap 15 mmol/L 07/12/21 06:38 BUN 2 mg/dL (7-17) L 07/12/21 06:38 Creatinine 0.5 mg/dL (0.6-1.2) L 07/12/21 06:38 Estimated GFR > 60 ml/min 07/12/21 06:38 BUN/Creatinine Ratio 4 % 07/12/21 06:38 Glucose 159 mg/dL (65-100) H 07/12/21 06:38 POC Glucose 99 mg/dL (70-105) 07/12/21 16:38 Lactic Acid 1.90 mmol/L (0.7-2.0) 07/08/21 09:29 Calcium 8.6 mg/dL (8.4-10.2) 07/12/21 06:38 Magnesium 1.20 mg/dL (1.7-2.3) L 07/12/21 06:38 Total Bilirubin 0.80 mg/dL (0.1-1.2) 07/12/21 06:38 Direct Bilirubin < 0.2 mg/dL (0-0.2) 07/08/21 09:29 Indirect Bilirubin 0.1 mg/dL 07/08/21 09:29 AST 15 units/L (5-40) 07/12/21 06:38 ALT 10 units/L (7-56) 07/12/21 06:38 Alkaline Phosphatase 61 units/L (35-129) 07/12/21 06:38 Total Creatine Kinase 71 units/L (30-135) 07/08/21 09:29 Total Protein 5.8 g/dL (6.3-8.2) L 07/12/21 06:38 Albumin 2.9 g/dL (3.9-5) L 07/12/21 06:38 Albumin/Globulin Ratio 1.0 % 07/12/21 06:38 Lipase 21 units/L (13-60) 07/08/21 09:29 Blood Type B POSITIVE 07/08/21 12:44 Antibody Screen Negative 07/08/21 12:44 Crossmatch See Detail 07/08/21 12:44 Microbiology: Microbiology 07/08/21 12:33 Peripheral/Venous Blood Culture - Preliminary NO GROWTH AFTER 4 DAYS 07/08/21 12:33 Peripheral/Venous Blood Culture - Preliminary NO GROWTH AFTER 4 DAYS Evans/IV: Voiding Method Toilet Active Medications - Current Medications Current Medications: Generic Name Dose Route Start Last Admin Trade Name Freq PRN Reason Stop Dose Admin Acetaminophen 650 mg 07/08/21 13:57 Acetaminophen 325 Mg Tab PO Q4H PRN Pain MILD(1-3)/Fever >100.5/LOTT Famotidine 20 mg 07/08/21 14:00 07/12/21 11:18 Famotidine 20 Mg/2 Ml Inj IV 20 mg BID ISIDORO Administration Hydromorphone HCl 1 mg 07/11/21 12:45 07/12/21 11:20 Hydromorphone 1 Mg/1 Ml Inj IV 1 mg Q4H PRN Administration Pain , Severe (7-10) Piperacillin Sod/Tazobactam Sod 4.5 gm in 100 mls @ 200 mls/hr 07/08/21 14:00 07/12/21 13:30 Zosyn/Ns 4.5gm/100ml IV 100 mls/hr Q8HR ISIODRO Administration Protocol Potassium Chloride 20 meq/ 1,010 mls @ 125 mls/hr 07/11/21 20:08 07/11/21 22:50 Dextrose/Lactated Ringer's IV 125 mls/hr DIRECT ISIDORO Administration Insulin Human Lispro 0 unit 07/09/21 07:30 07/12/21 15:03 Insulin Lispro 100 Unit/Ml SUB-Q Not Given Q6HR [facility] Protocol Ketorolac Tromethamine 30 mg 07/11/21 14:00 07/12/21 15:04 Ketorolac 30 Mg/1 Ml Inj IV 07/16/21 13:59 Not Given Q8H ISIDORO Ondansetron HCl 4 mg 07/08/21 13:57 Ondansetron 4 Mg/2 Ml Inj IV Q8H PRN Nausea And Vomiting Ondansetron HCl 4 mg 07/08/21 17:10 Ondansetron 4 Mg/2 Ml Inj IV ONCE PRN Nausea And Vomiting Oxycodone/Acetaminophen 1 tab 07/11/21 12:44 07/12/21 08:34 Oxycodone /Acetaminophen 5-325mg Tab PO 1 tab Q6H PRN Administration Pain, Moderate (4-6) Simethicone 80 mg 07/11/21 13:30 07/12/21 08:35 Simethicone 80 Mg Chew Tab PO 80 mg Q6H PRN Administration Gas pain Sodium Chloride 10 ml 07/08/21 22:00 07/12/21 11:19 Sodium Chloride 0.9% 10 Ml Flush Syringe IV 10 ml BID ISIDORO Administration Sodium Chloride 10 ml 07/09/21 09:08 Sodium Chloride 0.9% 50 Ml Ivpb IV PRN PRN FLUSH Nutrition/Malnutrition Assess - Dietary Evaluation Nutrition/Malnutrition Findings: Nutrition Notes Start: 07/09/21 11:50 Freq: Status: Active Protocol: Document 07/10/21 12:00 WANG (Rec: 07/10/21 12:10 WANG [id number]) Nutrition Notes Initial or Follow up Brief Note Current Diet NPO (since 07/08 12:08). Height 5 ft 6 in Weight 45.8 kg [place] Body Weight (kg) 59.09 BMI 16.2 Weight change and time frame 0.013 Kg body weight change reported. Weight Status Underweight Subjective/Other Information RD consult for routine F/U on Dietary Advancement. Pt continues on NPO. No further information on chart at the time. Percent of energy/protein needs met: Pt currently on NPO. Nutrition Intervention Follow-Up By: 07/13/21 Additional Comments When pertinent, monitor food tolerance, %PO intake of meals , and BM.
[2021-07-12] MEDS: POTASSIUM CHLORIDE 10 MEQ 10 MEQ/100 ML BAG IV SCH ×3 (17:57→21:11)
[2021-07-13] MEDS: POTASSIUM CHLORIDE 20 MEQ in D5W/LACTATED RINGERS 1,000 ML IV SCH (01:37)
[2021-07-13] MEDS: KETOROLAC 30 MG/1 ML INJ IV SCH ×2 (05:58→16:49)
[2021-07-13] MEDS: INSULIN LISPRO 100 UNIT/ML SUB-Q SCH ×3 (06:03→12:00)
[2021-07-13] MEDS: PIPERACIL/TAZOBACTA 4.5/NS 100 4.5 GM/100 ML VIAL IV SCH ×2 (06:04→16:49)
[2021-07-13 10:13] LABS: Alanine Aminotransferase 9 units/L (7-56); Albumin 3.4 g/dL (3.9-5); Blood Urea Nitrogen 2 mg/dL (7-17); Calcium 8.7 mg/dL (8.4-10.2); Hemolysis Index 2
[2021-07-13 10:15] LABS: BUN/Creatinine Ratio 3
[2021-07-13] MEDS: FAMOTIDINE 20 MG/2 ML INJ IV SCH (10:27)
[2021-07-13 10:40] LABS: Basophils % (Auto) 0.4 % (0.0-1.8); Eosinophils # (Auto) 0.4 K/mm3 (0.0-0.4); Eosinophils % (Auto) 3.6 % (0.0-4.3); Hematocrit 37.3 % (30.3-42.9); Hemoglobin 11.8 gm/dl (10.1-14.3); Lymphocytes # (Auto) 2.2 K/mm3 (1.2-5.4); Lymphocytes % (Auto) 19.4 % (13.4-35.0); Mean Corpuscular HGB Conc 32 % (30-34); Mean Corpuscular Volume 87 fl (79-97); Monocytes # (Auto) 0.6 K/mm3 (0.0-0.8); Monocytes % (Auto) 4.9 % (0.0-7.3); Platelet Count 169 K/mm3 (140-440); Red Blood Count 4.31 M/mm3 (3.65-5.03); Red Cell Distribution Width 16.7 % (13.2-15.2)
[2021-07-13 11:47] VITALS: BP 131/52
--- NOTE | 2021-07-13 16:27 | Discharge Summary ---
Providers - Providers Date of Admission: 07/08/21 12:40 Date of discharge: 07/13/21 Attending physician: BELLA STEVENSON 07/08/21 12:09 Consult to Physician [CONS] Urgent Comment: Consulting Provider: WENDI QUACH Physician Instructions: Reason For Exam: pneumoperitoneum Primary care physician: PROFESSIONAL DEVELOPMENT DIRECTOR Hospitalization Condition: Serious Hospital course: Assessment and Plan Assessment and plan: 60 yo BF with past medical history of HTN, COPD, tobacco smoking alcohol abuse and pancreatitis presents with abdominal pain that she awoke with at am today. Pain started in the LLQ and then spread thruout the abdomin. Patient underwent colonoscopy for CRC screening yesterday at [facility] . Verbal report from MAE Bhat who was present during the procedure is that no tumor or polyps were seen. CT of abdo is with free air in the abdominal cavity. (1) colon perforation, post colonoscopy/iatrogenic Current Visit: Yes Status: Acute Plan to address problem: Some bleeding from perforation noted intraoperatively status post surgical repair with a patch on 07/08 emergently Some fibrinous exudate is noted in the proximal sigmoid colon at its junction with the descending colon with perforation, 4 mm in size. Remains hemodynamically stable postoperatively On full liquid diets, has BMs today, diet to be advanced to regular diet continue IV fluids for hydration As needed pain medications and antiemetics General surgery following Patient had a large bowel movement Patient be discharged today on Colace (2) possible peritonitis Current Visit: Yes Status: Acute Plan to address problem: Resolved (3) Hypokalemia and hypomagnesemia Current Visit: Yes Status: Acute Plan to address problem: Resolved Patient restarted on potassium and magnesium every other day (4) smoker, appears to have COPD Current Visit: Yes Status: Acute Plan to address problem: Patient counseled about stopping smoking (5) Hypertension Current Visit: Yes Status: Chronic Qualifiers: Hypertension type: primary hypertension Qualified Code(s): I10 - Essential (primary) hypertension Plan to address problem: Patient is hypotensive now Hold blood pressure medications (6) T2DM (type 2 diabetes mellitus) Current Visit: Yes Status: Chronic Qualifiers: Diabetes mellitus director long term care insulin use: unspecified director long term care insulin use status Plan to address problem: Coverage for now (7) DVT prophylaxis Current Visit: Yes Status: Acute Plan to address problem: On SCDs and GI prophylaxis (8) Advance care planning Current Visit: Yes Status: Acute Plan to address problem: Disease education conducted, care plan discussed, diagnosis discussed, prognosis discussed. Patient is full code. Patient on acknowledges understanding and agreement with care plan. +30 minutes. Discussed with the patient and the nursing staff History Interval history: Had BM today. Passing flatus. Started on today. Abdominal pain better. Minimal output from the drain. Disposition: 01 HOME / SELF CARE / HOMELESS Final Discharge Diagnosis (Prints w/discharge instructions): Colon perforation. Peritonitis. Hypokalemia. Hypomagnesemia. Nicotine dependence. Hypertension Time spent for discharge: 35 minutes - Discharge Diagnoses (1) Peritonitis (acute) generalized Status: Acute (2) Pneumoperitoneum Status: Acute (3) Hypokalemia Status: Acute (4) Hypomagnesemia Status: Acute (5) Hypertension Status: Chronic Qualifiers: Hypertension type: primary hypertension Qualified Code(s): I10 - Essential (primary) hypertension (6) T2DM (type 2 diabetes mellitus) Status: Chronic Qualifiers: Diabetes mellitus assisted insulin use: unspecified director long term care insulin use status (7) Colon perforation Status: Acute (8) Colon perforation Status: Acute (9) DVT prophylaxis Status: Acute (10) Advance care planning Status: Acute Core Measure Documentation - Palliative Care Palliative Care/ Comfort Measures: Not Applicable - Core Measures Any of the following diagnoses?: none Exam - Constitutional Vitals: Temp Pulse Resp BP Pulse Ox 98.1 F 60 18 131/52 100 07/13/21 11:36 07/13/21 11:36 07/13/21 11:36 07/13/21 11:36 07/13/21 11:36 General appearance: Present: no acute distress, well-nourished - EENT Eyes: Present: PERRL ENT: hearing intact, clear oral mucosa - Neck Neck: Present: supple, normal ROM - Respiratory Respiratory effort: normal Respiratory: bilateral: CTA - Cardiovascular Heart rate: 72 Rhythm: regular Heart Sounds: Present: S1 & S2. Absent: rub, click - Extremities Extremities: pulses symmetrical, No edema Peripheral Pulses: within normal limits - Abdominal General gastrointestinal: Present: soft, non-tender, non-distended, normal bowel sounds Female genitourinary: Present: normal - Integumentary Integumentary: Present: clear, warm, dry - Musculoskeletal Musculoskeletal: gait normal, strength equal bilaterally - Psychiatric Psychiatric: appropriate mood/affect, intact judgment & insight - Neurologic Neurologic: CNII-XII intact, moves all extremities Plan Activity: no restrictions Diet: clear liquids (For 2 days) Follow up with: PRIMARY CARE, [Primary Care Provider] - 3-5 Days WENDI QUACH MD [Staff Physician] - 7 Days
== END 2021-07-13 17:14 | disposition home or self-care (01) | DRG 329 ==
LOC: ED 08:30 → 3A 12:40
PROVIDERS: ADMIT Internal Medicine; ATTEND Internal Medicine
PROC: 0DQN0ZZ Repair Sigmoid Colon, Open Approach (ICD-10-PCS; principal; 2021-07-08)
PROC: 0WJG0ZZ Inspection of Peritoneal Cavity, Open Approach (ICD-10-PCS; 2021-07-08)
PROC: 30233N1 Transfusion of Nonautologous Red Blood Cells into Peripheral Vein, Percutaneous Approach (ICD-10-PCS; 2021-07-08)
DX: K65.9 Peritonitis, unspecified (principal); K63.1 Perforation of intestine (nontraumatic); K66.8 Other specified disorders of peritoneum; Z20.822 Contact with and (suspected) exposure to COVID-19; J44.9 Chronic obstructive pulmonary disease, unspecified; E87.6 Hypokalemia; E83.42 Hypomagnesemia; I10 Essential (primary) hypertension; E11.9 Type 2 diabetes mellitus without complications; K21.9 Gastro-esophageal reflux disease without esophagitis
CPT/HCPCS: 36415; 71045; 74177; 80048; 80053; 80076; 82140; 82550; 82962; 83690; 83735; 85025; 85027; 85610; 86850; 86900; 86901; 86920; 87040; 93005; 93010; G0378; J1815; J3490; J7060; J7120; J7517; Q0162; J0330; J1170; J1200; J1885; J1956; J2250; J2270; J2370; J2405; J2543; J2704; J2710; J3010; J3475; J3480; J7030; J7121; P9016; Q9967